=== PATIENT | female | born 1950 | race Caucasian/White ===

== ENCOUNTER 2017-02-17 12:20 | Emergency (ER) | payer MEDICARE, OTHER ==
--- NOTE | 2017-02-17 13:11 | ERPHSYRPT ---
- History of Present Illness Time Seen by Provider: 02/17/17 12:28 Source: patient, family Exam Limitations: no limitations Patient Subjective Stated Complaint: feeling numbness in right side of face and right arm. saw museum preparator this am and had labs done. ddimer elevated so patient was sent to er for eval Triage Nursing Assessment: ambulated to room without difficulty. skin w/d, color normal, resp easy. numbness to right arm and face since yesterday. that continues at present time. denies any other symptoms at this time. Physician History: patient seen in walk in clinic and had an abnormally hi D Dimer; Called by Meme Glover to evaluate; concern that may be TIA/Stroke patient developed numb feeling in right side of lower face yesterday with funny feeling in scalp; no PEREZ; no fever; no trauma; no travel or exposures; also numbness in right forearm and across top of right hand tingling like asleep; no prior hx; left hand dominant; no trouble eating, swallowing or walking; no memory issues; no visual changes; no tiniitus; no change in urine or bowel Timing/Duration: today (persistant but not as noticable), yesterday (onset), gradual onset, improved Severity: mild Modifying Factors: Improves With: nothing Associated Symptoms: denies symptoms Allergies/Adverse Reactions: adhesive Allergy (Verified 01/07/16 21:39) corn Allergy (Verified 02/17/17 12:54) Latex, Natural Rubber Allergy (Verified 01/07/16 21:39) milk Allergy (Verified 01/07/16 21:39) Home Medications: Hydrochlorothiazide 25 mg [hydroDIURIL 25 MG] 25 mg PO DAILY 02/17/17 [ History] Levothyroxine Sodium 88 Mcg [Synthroid 88 Mcg] 88 mcg PO DAILY 02/17/17 [ History] Montelukast Sodium 10 mg [Singulair 10 MG] 10 mg PO DAILY 02/17/17 [History] Valsartan [Diovan] 80 mg PO DAILY 02/17/17 [History] Hx Tetanus, Diphtheria Vaccination/Date Given: No Hx Influenza Vaccination/Date Given: Yes Hx Pneumococcal Vaccination/Date Given: Yes - Review of Systems Constitutional: No Symptoms Eyes: No Symptoms Ears, Nose, & Throat: No Symptoms Respiratory: No Cough, No Dyspnea, No Wheezing Cardiac: No Chest Pain, No Palpitations, No Syncope Abdominal/Gastrointestinal: No Abdominal Pain, No Nausea, No Vomiting, No Diarrhea Genitourinary Symptoms: No Dysuria, No Hematuria, No Incontinence, No Urinary Retention Musculoskeletal: No Back Pain, No Neck Pain, No Fall, No Injury Skin: No Symptoms Neurological: Parasthesia (right face V-2 and V-3 distribution and right forearm and dorsal hand), Sensory Changes, No Focal Weakness, No Gait Changes, No Headache, No Paralysis, No Speech Changes, No Vertigo Psychological: No Symptoms Endocrine: No Symptoms Hematologic/Lymphatic: No Symptoms Immunological/Allergic: No Symptoms - Past Medical History Pertinent Past Medical History: Yes Cardiac History: Hypertension Respiratory History: Asthma - Past Surgical History Past Surgical History: Yes Gastrointestinal: Cholecystectomy Female Surgical History: Hysterectomy Other Surgical History: EXPLORATORY LAP - Social History Smoking Status: Never smoker Exposure to second hand smoke: No Alcohol Use: Socially Drug Use: none Patient Lives Alone: No Significant Family History: no pertinent family hx - Female History Hx Now: No - Nursing Vital Signs Nursing Vital Signs: Initial Vital Signs Temperature 98.3 F 02/17/17 12:49 Pulse Rate 98 H 02/17/17 12:49 Respiratory Rate 16 02/17/17 12:49 Blood Pressure 148/87 02/17/17 12:49 O2 Sat by Pulse Oximetry 95 02/17/17 12:49 Pain Scale Pain Intensity 0 - Physical Exam General Appearance: mild distress, alert Eye Exam: PERRL/EOMI, eyes nml inspection, other (fundi benign; vision ok; no papiledema), No photophobia Ears, Nose, Throat Exam: normal ENT inspection, TMs normal, pharynx normal, moist mucous membranes Neck Exam: normal inspection, non-tender, supple, full range of motion, No meningismus, No JVD Cardiovascular Exam: regular rate/rhythm, normal peripheral pulses, capillary refill <2 sec, No normal heart sounds, No murmur Gastrointestinal/Abdomen Exam: soft, normal bowel sounds, No tenderness, No guarding, No rebound, No organomegaly Pelvic Exam: deferred Rectal Exam: deferred Back Exam: normal inspection, normal range of motion, No CVA tenderness, No vertebral tenderness, No rash Extremity Exam: normal inspection, normal range of motion, No kenneth's sign, No pedal edema Neurologic Exam: alert, oriented x 3, cooperative, bessemer regulator II-XII nml as tested, normal mood/affect, nml cerebellar function, nml station & gait, sensation nml ( to light touch), other (tongue midline; nneg rhomberg; good finger to nose; no cerebellar dysfunction), No motor deficits, No sensory deficit, No slurred speech Skin Exam: normal color, warm, dry, No rash, No petechiae, No cyanosis SpO2 Interpretation: normal SpO2: 95 Oxygen Delivery: Room Air - Course Nursing assessment & vital signs reviewed: Yes - CT Exams Head CT Interpretation: Negative, Tele-radiologist Report, No/Intracranial Hemorrhag Ordered Tests: Active Orders 24 hr Category Date Time Status Re-Check Vital Signs STAT Care 02/17/17 12:56 Active HEAD WITHOUT CONTRAST [CT] Stat Exams 02/17/17 12:57 Completed BMP Stat Lab 02/17/17 13:30 Completed MAGNESIUM Stat Lab 02/17/17 13:30 Completed PROTIME WITH INR Stat Lab 02/17/17 13:30 Completed Medication Summary Discontinued Medications Generic Name Dose Route Start Last Admin Trade Name Mannyq PRN Reason Stop Dose Admin Potassium Bicarbonate 50 meq 02/17/17 13:53 02/17/17 13:57 K-Lyte 25 Meq PO 02/17/17 13:54 50 meq STAT ONE Administration Potassium Bicarbonate Confirm 02/17/17 13:54 K-Lyte 25 Meq Administered 02/17/17 13:55 Dose 50 meq .ROUTE .[place]ard-MED ONE Lab/Rad Data: Laboratory Result Diagrams 02/17/17 13:30 Laboratory Results 02/17/17 02/17/17 02/17/17 Range/Units 13:30 13:30 13:30 INR 1.04 (0.8-3.0) Sodium 142 (136-145) mEq/L Potassium 2.8 L* (3.5-5.1) mEq/L Chloride 105 (98-107) mEq/L Carbon Dioxide 27.0 (21-32) mEq/L Anion Gap 13.5 (5-15) MEQ/L BUN 9 (9-20) mg/dL Creatinine 0.73 (0.55-1.30) mg/dl Estimated GFR > 60 ML/MIN Glucose 157 H (70-110) MG/DL Calcium 9.5 (8.5-10.1) mg/dL Magnesium 1.7 L (1.8-2.4) mg/dL reviewed - Progress Progress: unchanged (after ct; consulted), re-examined (after CT) Progress Note: 02/17/17 13:14 Discussed workup with Meme Glover and will check lytes and Mg++ and get CT; will monitor and recheck 02/17/17 13:[address]; no change in exam ; at bedside; lyts wnl excpet low K+ 2.8; takes a diuretic but quit taking K+ supplement; will give K+ po and recheck ; CT pending 02/17/17 14:07 CT neg on report; INR ok; Mg++ pending; gave K+ will recheck 02/17/17 14:08 Mg++ low also at 1.7; will consult with Dr Garcia for disposition 02/17/17 14:30 patient up tp the BR; no problems; rechecked; - symptoms starting to improve after K+ PO Discussed with DrJasmyn: Jose (consulted) Counseled pt/family regarding: lab results, diagnosis, need for follow-up, rad results - Departure Time of Disposition: 14:35 Departure Disposition: Home Clinical Impression: Hypokalemia due to loss of potassium, Hypomagnesemia, Arm paresthesia, right, Facial paresthesia Condition: Stable Critical Care Time: No Referrals: KELLEN GLOVER, AGRICULTURAL SYSTEMS SPECIALIST [Primary Care Provider] - Instructions: Hypokalemia Additional Instructions: Diet rich in K+ and Mg++; ; take meds as prescribed Follow-up with family doctor as directed. Call for appointment. Return if any problems. If you smoke please stop. Call or follow up with your family doctor for assistance if you need it to stop. Please wear your seatbelt when driving. Have a nice day. Thank you for allowing us to participate in your care today. :o) Dr Jose Han Prescriptions: Calcium Carb/Mag Carb/Folic AC [Magnebind 400 Rx Tablet] 1 each PO DAILY #30 tablet Potassium Chloride 20 Meq [Klor-Con 20 MEQ] 20 meq PO BID #60 tab
[2017-02-17 13:19] VITALS: BP 149/87; PULSE 94
[2017-02-17 13:46] LABS: ANION GAP 13.5 MEQ/L (5-15); BLOOD UREA NITROGEN 9 mg/dL (9-20); CHLORIDE 105 mEq/L (98-107); Glucose 157 MG/DL (70-110); SODIUM 142 mEq/L (136-145)
[2017-02-17 13:47] LABS: Potassium 2.8 mEq/L (3.5-5.1)
[2017-02-17 13:53] VITALS: O2SAT 95
[2017-02-17] MEDS ORDERED: K-LYTE 25 MEQ PO ONE (13:53)
[2017-02-17] MEDS ORDERED: K-LYTE 25 MEQ ONE (13:54)
[2017-02-17 13:58] LABS: INR 1.04 (0.8-3.0); PROTIME 11.6 SECONDS (9.95-12.35)
--- NOTE | 2017-02-17 14:02 | XRAY ---
Exam: CT of the head without IV contrast from 02/17/2017. CTDI: 71.08 Comparison: None. Indication: Right arm and right side facial numbness 24 hours with no history of injury or prior brain surgery. Technique: Non-IV contrast axial images were obtained through the brain without IV contrast. Reconstructed coronal and sagittal images were created and reviewed. Findings: The ventricles appear of normal size. No focal mass effect or midline shift is seen. I see no evidence of hyperdense MCA sign. No acute intracranial bleed or abnormal extra-axial fluid collection is seen. The nolasco matter-white matter interfaces appear unremarkable. Mild artifactual streaking is seen on the lower cuts through the brain. I see no evidence of territorial infarction. The cortical sulci and basilar cisterns appear unremarkable for the patient's age. There is minimal circumferential mucosal thickening within the left maxillary sinus. Scant mucosal thickening is seen within the right maxillary sinus. There is moderate scattered soft tissue density within the ethmoid sinuses suggesting sinus disease/sinusitis. The frontal sinuses and sphenoid sinus are remarkable only for mild mucosal thickening within the sphenoid sinus. No air-fluid levels are seen. The mastoid air cells are clear. Calvarium of the skull appears intact. Impression: 1. I see no evidence of acute intracranial bleed, focal mass effect, or midline shift. 2. No definite low attenuation lesion is seen to suggest a territorial infarct. If symptoms persists, further evaluation with an MRI of the brain may be helpful. 3. There is some mild artifactual streaking on the lower cuts through the brain. 3. Paranasal sinus disease/sinusitis, which is likely chronic.
== END 2017-02-17 14:41 | disposition home or self-care (01) ==
LOC: ED 12:20
DX: E87.6 Hypokalemia (principal); E83.42 Hypomagnesemia; R20.9 Unspecified disturbances of skin sensation
CPT/HCPCS: 36415; 70450; 80048; 83735; 85610; 99283; A9270-GY

== ENCOUNTER 2017-09-28 16:48 | Emergency (ER) | payer MEDICARE, OTHER ==
[2017-09-28 17:04] VITALS: BP 157/91; PULSE 100; O2SAT 97
[2017-09-28] MEDS ORDERED: Adacel Vial IM ONE ×2 (17:53→17:58)
[2017-09-28] MEDS ORDERED: BACIGUENT PACKET TP ONE (17:53)
[2017-09-28] MEDS ORDERED: XYLOCAINE 1% HCL 20 ML MDV IJ ONE (17:53)
[2017-09-28] MEDS ORDERED: BACIGUENT PACKET ONE (17:58)
[2017-09-28] MEDS ORDERED: XYLOCAINE 1% HCL 20 ML MDV ONE (17:58)
--- NOTE | 2017-09-28 17:58 | ERPHSYRPT ---
- History of Present Illness Time Seen by Provider: 09/28/17 17:54 Source: patient (Anna was done with her of) Exam Limitations: no limitations Patient Subjective Stated Complaint: Fall, laceration to left forearm. Triage Nursing Assessment: Pt presents to the ED with complaints of left forearm laceration after falling at home today. Pt states left elbow pain. Pt denies other complaints at this time, no distress noted. Physician History: 67-year-old white female arrives with complaint of a laceration to her left proximal anterior forearm and pain in her left elbow after falling at home. Patient denies any problems moving her left upper extremity she denies any other injury she states she fell against a refrigerator and then down to the floor. This occurred approximately 1-1/2 hours prior to arrival. Patient is not sure when her last tetanus was.. Past medical history includes asthma, high blood pressure. Past surgical history includes cholecystectomy, hysterectomy, exploratory laparotomy. Extremities Pain Location: elbow: left, forearm: left Modifying Factors: Improves With: nothing Associated Symptoms: none Allergies/Adverse Reactions: adhesive Allergy (Verified 01/07/16 21:39) corn Allergy (Verified 02/17/17 12:54) Latex, Natural Rubber Allergy (Verified 01/07/16 21:39) milk Allergy (Verified 01/07/16 21:39) Home Medications: Levothyroxine Sodium 88 Mcg [Synthroid 88 Mcg] 88 mcg PO DAILY 02/17/17 [ History] Montelukast Sodium 10 mg [Singulair 10 MG] 10 mg PO DAILY 02/17/17 [History] Valsartan [Diovan] 80 mg PO DAILY 02/17/17 [History] Hctz/Triamterene 25/37.5 mg [Maxzide 25MG] 1 tab PO DAILY 09/28/17 [History] Hx Tetanus, Diphtheria Vaccination/Date Given: No Hx Influenza Vaccination/Date Given: No Hx Pneumococcal Vaccination/Date Given: Yes Immunizations Up to Date: No - Review of Systems Constitutional: No Fever, No Chills Eyes: No Symptoms Ears, Nose, & Throat: No Symptoms Respiratory: No Cough, No Dyspnea Cardiac: No Chest Pain, No Edema, No Syncope Abdominal/Gastrointestinal: No Abdominal Pain, No Nausea, No Vomiting, No Diarrhea Genitourinary Symptoms: No Dysuria Musculoskeletal: Other (pain left elbow) Skin: Other (3 cm laceration left anterior proximal forearm) Neurological: No Dizziness, No Focal Weakness, No Sensory Changes Psychological: No Symptoms Endocrine: No Symptoms All Other Systems: Reviewed and Negative - Past Medical History Pertinent Past Medical History: Yes Cardiac History: Hypertension Respiratory History: Asthma - Past Surgical History Past Surgical History: Yes Gastrointestinal: Cholecystectomy Female Surgical History: Hysterectomy Other Surgical History: EXPLORATORY LAP - Social History Smoking Status: Never smoker Exposure to second hand smoke: No Alcohol Use: Socially Drug Use: none Patient Lives Alone: No Significant Family History: no pertinent family hx - Female History Hx Now: No - Nursing Vital Signs Nursing Vital Signs: Initial Vital Signs Temperature 99.0 F 09/28/17 17:00 Pulse Rate 100 H 09/28/17 17:00 Respiratory Rate 16 09/28/17 17:00 Blood Pressure 157/91 09/28/17 17:00 O2 Sat by Pulse Oximetry 97 09/28/17 17:00 Pain Scale Pain Intensity 4 - Physical Exam General Appearance: mild distress Eyes, Ears, Nose, Throat Exam: moist mucous membranes Neck Exam: non-tender, supple Cardiovascular/Respiratory Exam: chest non-tender, normal breath sounds, regular rate/rhythm, no respiratory distress Abdominal Exam: non-tender, No guarding Back Exam: normal inspection, No vertebral tenderness Shoulder Exam: normal inspection, non-tender, no evidence of injury, normal ROM Elbow/Forearm Exam: No normal inspection (Patient with 3 cm laceration left anterior proximal forearm, mild ecchymosis left elbow mild tenderneness with palpation left elbow. Full range of motion all extremities) Wrist Exam: normal inspection, non-tender, no evidence of injury, normal ROM Hand Exam: normal inspection, non-tender, no evidence of injury, normal ROM Neuro/Tendon Exam: normal sensation, normal motor functions Mental Status Exam: alert, oriented x 3, cooperative Skin Exam: other (3 cm laceration left anterior proximal forearm) SpO2 Interpretation: normal (97%) SpO2: 97 Oxygen Delivery: Room Air - Course Nursing assessment & vital signs reviewed: Yes - Radiology Exams Left Elbow X-ray Interpretation: Discussed w/ radiologist, No Fracture, No Subluxation, Other (no fracture, no subluxation , medial epicondyle spur) Ordered Tests: Active Orders 24 hr Category Date Time Status Prepare for Sutures STAT Care 09/28/17 17:53 Active Sutures STAT Care 09/28/17 17:54 Active Wound Care STAT Care 09/28/17 17:53 Active ELBOW (2 VIEW) Stat Exams 09/28/17 17:21 Taken Medication Summary Discontinued Medications Generic Name Dose Route Start Last Admin Trade Name Ayala PRN Reason Stop Dose Admin Bacitracin 0.9 gm 09/28/17 17:53 09/28/17 18:03 Baciguent Packet TP 09/28/17 17:54 0.9 gm STAT ONE Administration Bacitracin Confirm 09/28/17 17:58 Baciguent Packet Administered 09/28/17 17:59 Dose 1 gm .ROUTE .STK-MED ONE Diphtheria/Tetanus/Acell Pertussis 0.5 ml 09/28/17 17:53 09/28/17 18:02 Adacel Vial IM 09/28/17 17:54 0.5 ml .ONCE ONE Administration Diphtheria/Tetanus/Acell Pertussis Confirm 09/28/17 17:58 Adacel Vial Administered 09/28/17 17:59 Dose 0.5 ml IM .STK-MED ONE Lidocaine HCl 5 ml 09/28/17 17:53 09/28/17 18:04 Xylocaine 1% Hcl 20 Ml Mdv IJ 09/28/17 17:54 5 ml STAT ONE Administration Lidocaine HCl Confirm 09/28/17 17:58 Xylocaine 1% Hcl 20 Ml Mdv Administered 09/28/17 17:59 Dose 1 ml .ROUTE .STK-MED ONE - Progress Progress: improved Progress Note: 09/28/17 18:36 Laceration repair 3 cm laceration left proximal anterior forearm. Laceration was sterilely prepped and draped, anesthetized with 1% lidocaine sutured with 6 5. 0 Ethilon sutures Bacitracin and dressing is applied. Patient's x-ray left elbow (my read ) no fractures no subluxation. Patient's DTaP was updated. - Departure Time of Disposition: 18:37 Departure Disposition: Home Clinical Impression: 3 cm laceration left forearm Contusion of left elbow Qualifiers: Encounter type: initial encounter Qualified Code(s): S50.02XA - Contusion of left elbow, initial encounter Condition: Fair Critical Care Time: No Referrals: BALWINDER PACHECO [Primary Care Provider] - Instructions: Laceration Repair With Stitches (DC) Additional Instructions: Return home. Cold packs left elbow 24-48 hours. Tylenol every 4 hours as needed for pain. Bacitracin to laceration until healed. Sutures out 7-10 days. Follow-up with your family doctor or return if signs of infection or problems. Return for acute distress or for severe symptoms.
--- NOTE | 2017-09-29 08:36 | XRAY ---
Indication: Pain, contusion, and swelling following fall. Comparison: None 3 views of the left elbow demonstrates tiny medial epicondyle spur. No other bony, articular, or soft tissue abnormalities.
== END 2017-09-28 18:50 | disposition home or self-care (01) ==
LOC: ED 16:48
DX: S51.812A Laceration without foreign body of left forearm, initial encounter (principal); S50.02XA Contusion of left elbow, initial encounter; W18.30XA Fall on same level, unspecified, initial encounter
CPT/HCPCS: 12002; 73070; 90471; 90715; 96372; 99283; 99284; A9270-GY

== ENCOUNTER 2022-12-07 15:10 | Emergency (ER) | payer MEDICARE, OTHER ==
--- NOTE | 2022-12-07 15:15 | ERPHSYRPT ---
- History of Present Illness Time Seen by Provider: 12/07/22 15:15 Source: patient Exam Limitations: no limitations Physician History: This is a 72-year-old white female patient of Dr. Reed was seen by Dr. Reed's nurse practitioner nurse practitioner Sanjiv in the office today. Blood work was obtained. Patient was having shortness of breath and not feeling generally well. Patient was started on Augmentin today and received an intramuscular injection of Kenalog in the office. The laboratory work-up included a D-dimer which was found to be significantly elevated. Therefore, the office contacted the patient and the patient is here for further evaluation and management. Patient did have a right knee arthroscopy on October 31 2022. Patient has a history of hypothyroidism and hypertension. Patient denies chest pain. Patient denies hemoptysis. Patient denies abdominal pain. Patient also had COVID and viral studies done today which were negative. Timing/Duration: today, worse Severity: mild Associated Symptoms: shortness of breath, weakness, No nausea, No vomiting, No cough, No chills, No chest pain Allergies/Adverse Reactions: adhesive Allergy (Verified 12/07/22 15:21) corn Allergy (Verified 12/07/22 15:21) Latex, Natural Rubber Allergy (Verified 12/07/22 15:21) milk Allergy (Verified 12/07/22 15:21) Home Medications: Levothyroxine Sodium 88 Mcg [Synthroid 88 Mcg] 88 mcg PO DAILY 02/17/17 [History] Montelukast Sodium 10 mg [Singulair 10 MG] 10 mg PO DAILY 02/17/17 [History] Valsartan [Diovan] 80 mg PO DAILY 02/17/17 [History] Hctz/Triamterene 25/37.5 mg [Maxzide 25MG] 1 tab PO DAILY 09/28/17 [History] Hx Tetanus, Diphtheria Vaccination/Date Given: No Hx Influenza Vaccination/Date Given: No Hx Pneumococcal Vaccination/Date Given: Yes Travel Risk - International Travel Have you traveled outside of the country in past 3 weeks: No - Coronavirus Screening Are you exhibiting any of the following symptoms?: No Close contact with a COVID-19 positive Pt in past 14-21 Days: No - Review of Systems Constitutional: Malaise, No Fever, No Chills Eyes: No Symptoms Ears, Nose, & Throat: No Symptoms Respiratory: Dyspnea Cardiac: No Symptoms Abdominal/Gastrointestinal: No Symptoms Genitourinary Symptoms: No Symptoms Musculoskeletal: No Symptoms Skin: No Symptoms Neurological: No Symptoms Psychological: No Symptoms Endocrine: No Symptoms Hematologic/Lymphatic: No Symptoms Immunological/Allergic: No Symptoms All Other Systems: Reviewed and Negative - Past Medical History Pertinent Past Medical History: Yes Neurological History: No Pertinent History Cardiac History: Arrhythmia Respiratory History: Asthma Endocrine Medical History: Hypothyroidism Musculoskeletal History: Osteoarthritis Other Medical History: PAST BACK PAIN. POTASSIUM DROP. R KNEE SCOPE DUE TO HER DOG RUNNING INTO THE SIDE OF HER KNEE. SCOPE WAS DONE ON 10/31/22. - Past Surgical History Past Surgical History: Yes Gastrointestinal: Cholecystectomy Female Surgical History: Hysterectomy Other Surgical History: EXPLORATORY LAP - Social History Smoking Status: Never smoker Exposure to second hand smoke: No Alcohol Use: Socially Drug Use: none Patient Lives Alone: No Significant Family History: no pertinent family hx - Nursing Vital Signs Nursing Vital Signs: Initial Vital Signs Pulse Rate 100 H 12/07/22 15:19 Respiratory Rate 14 12/07/22 15:19 Blood Pressure 94/58 12/07/22 15:19 Pain Scale Pain Intensity 0 - Physical Exam General Appearance: no apparent distress, alert Eye Exam: PERRL/EOMI, eyes nml inspection Ears, Nose, Throat Exam: normal ENT inspection, moist mucous membranes Neck Exam: normal inspection, non-tender, supple, full range of motion Respiratory Exam: normal breath sounds, lungs clear, airway intact, No chest tenderness, No respiratory distress Cardiovascular Exam: regular rate/rhythm, normal heart sounds, normal peripheral pulses Gastrointestinal/Abdomen Exam: soft, normal bowel sounds, No tenderness Pelvic Exam: not done Rectal Exam: not done Back Exam: normal inspection, normal range of motion, No CVA tenderness, No vertebral tenderness Extremity Exam: normal inspection, normal range of motion, pelvis stable Neurologic Exam: alert, oriented x 3, cooperative, paper hanger II-XII nml as tested, normal mood/affect, nml cerebellar function, nml station & gait, sensation nml Skin Exam: normal color, warm, dry Lymphatic Exam: No adenopathy SpO2 Interpretation: normal O2 Delivery: Room Air - Course Nursing assessment & vital signs reviewed: Yes EKG Interpreted by Me: RATE (104), Sinus Tach, Left Desdemona Deviation, NORMAL INTERVALS, NORMAL QRS, NORMAL ST-T, Other (Borderline no acute ischemic changes on today's twelve-lead EKG.) Ordered Tests: Active Orders 24 hr Category Date Time Status EKG-ER Only STAT Care 12/07/22 15:38 Active IV Insertion STAT Care 12/07/22 15:38 Active CHEST WITH CONTRAST [CT] Stat Exams 12/07/22 15:39 Completed BLOOD CULTURE Stat Lab 12/07/22 16:00 Ordered NT PRO BNPII Stat Lab 12/07/22 15:51 Completed TROPONIN Q4H Lab 12/07/22 15:51 Completed TROPONIN Q4H Lab 12/07/22 19:45 Ordered TROPONIN Q4H Lab 12/07/22 23:45 Ordered Medication Summary Discontinued Medications Generic Name Dose Route Start Last Admin Trade Name Ayala PRN Reason Stop Dose Admin Sodium Chloride 500 mls @ 500 mls/hr 12/07/22 15:39 12/07/22 16:56 Sodium Chloride 0.9% 500 Ml IV 12/07/22 16:38 Infused .Q1H ONE Infusion Sodium Chloride Confirm 12/07/22 15:52 Sodium Chloride 0.9% 500 Ml Administered 12/07/22 15:53 Dose 500 mls @ ud IV .STK-MED ONE Lab/Rad Data: Laboratory Results 12/07/22 12/07/22 Range/Units 15:51 15:51 Troponin I < 0.012 (0.000-0.034) ng/mL NT-Pro-B Natriuret Pep 843 (<300) pg/mL - Progress Progress: improved, re-examined Progress Note: 12/07/22 17:01 CT scan of the chest with contrast was interpreted by the radiologist and I r eviewed the impression. There are no pulmonary emboli present. There is no evidence of any acute cardiopulmonary abnormalities. This patient's medical issue is 1 of low to moderate complexity. Level complexity and the work-up performed is based on review of the patient's past medical history, review of the patient's medication list, review the patient's drug allergy list, history present illness and physical findings on examination. The patient had several labs performed earlier today and I reviewed that list of outpatient lab results. In addition, I ordered a CT scan of the chest with c ontrast with the above findings. I reviewed the twelve-lead EKG myself and interpreted it. I also reviewed the remainder of the labs performed including troponin level. Counseled pt/family regarding: lab results, diagnosis, need for follow-up, rad results Medical Desision Making - Independent Historian Additional History obtained from: Spouse, Child (Daughter) - Diagnostic Testing Diagnostic test were ordered, analyzed, and reviewed by me: Yes Radiological Interpretation: Reviewed by me, Teleradiologist Report - Risk of complications Low Risk: Low risk of morbidity from additional dx testing or treatment - Departure Departure Disposition: Home Clinical Impression: Shortness of breath, Leukocytosis Condition: Stable Critical Care Time: No Referrals: ANÍBAL REED MD [Primary Care Provider] - Follow up/PCP as directed Additional Instructions: Continue antibiotics and other outpatient therapy as well as your other medications as prescribed. Follow-up with your primary care provider for further evaluation management.
[2022-12-07] MEDS ORDERED: Sodium Chloride 0.9% 500 ML 500 ML IV ONE ×2 (15:39→15:52)
--- NOTE | 2022-12-07 16:46 | XRAY ---
Indication: Flu like symptoms. Short of breath. Elevated d-dimer. Multiple contiguous axial images obtained through the chest using 80 cc Isovue 370 contrast and PE protocol. Comparison: None Adequate opacification of the pulmonary arteries. No pulmonary embolus. Heart is enlarged. Aorta minimally arteriosclerotic without aneurysm/dissection. Tiny mediastinal and right hilar calcified nodes. No pathologic mediastinal/hilar lymphadenopathy. Small hiatal hernia. Lungs demonstrates minimal bilateral dependent atelectasis and minimal left base fibrosis/scarring. No suspicious pulmonary mass/nodule, infiltrate, or effusion. Bony thorax intact with minimal/mild degenerative changes throughout the spine. Limited upper abdomen demonstrates fatty liver, tiny splenic calcified granulomas, and cholecystectomy clips. Impression: 1. Negative pulmonary embolus. No acute cardiopulmonary abnormalities. 2. Chronic findings including cardiomegaly, hiatal hernia, degenerative spondylosis, fatty liver, and old granulomatous disease.
[2022-12-07 17:05] VITALS: BP 122/75; PULSE 86; O2SAT 99
== END 2022-12-07 17:24 | disposition home or self-care (01) ==
LOC: ED 15:10
DX: R06.02 Shortness of breath (principal); D72.829 Elevated white blood cell count, unspecified; R79.1 Abnormal coagulation profile; I10 Essential (primary) hypertension; Z79.899 Other long term (current) drug therapy
CPT/HCPCS: 36000; 36415; 71260; 83880; 84484; 87040; 93005; 96374; 99284

== ENCOUNTER 2022-12-26 16:46 | Inpatient (IN) | payer MEDICARE, OTHER ==
[2022-12-26] MEDS ORDERED: Sodium Chloride 0.9% 1000 ML 1,000 ML IV STA (18:21)
[2022-12-26 18:38] LABS: Absolute Neutrophil Ct (ANC) 13.27 x10^3/uL (1.4-6.9); BASOPHIL % 0.3 % (0.0-0.4); Basophil (Absolute #) 0.05 x10^3/uL (0-0.4); Eosinophil % 0.2 % (0.00-5.0); Eosinophil (Absolute #) 0.04 x10^3/uL (0-0.5); Hematocrit 31.8 % (35-47); Hemoglobin 10.7 g/dL (12.0-16.0); IMMATURE GRAN # 0.58 x10^3u/L (0.00-0.03); IMMATURE GRAN % 3.3 % (0.00-0.4); Lymphocyte (Absolute #) 2.13 x10^3/uL (1.0-4.6); Lymphocytes % 12.2 % (24.0-44.0); Mean Cell Volume 92.2 fL (78-100); Mean Corpuscular Hgb Concent. 33.6 g/dL (32-36); Mean Platelet Volume 9.9 fL (7.5-11.0); Monocyte (Absolute #) 1.41 x10^3/uL (0.0-1.3); Monocytes % 8.1 % (0.0-12.0); Neutrophil % 75.9 % (36.0-66.0); Platelet Count 264 x10^3/uL (150-450); Red Blood Count 3.45 x10^6/uL (4.1-5.4); Red Cell Distribution Width 13.3 % (11.5-14.0); White Blood Count 17.5 x10^3/uL (4.0-10.5)
[2022-12-26 18:46] LABS: ALBUMIN 3.1 g/dL (3.5-5.0); ALKALINE PHOSPHATASE 105 U/L (38-126); ANION GAP 14.3 MEQ/L (5-15); BLOOD UREA NITROGEN 7 mg/dL (7-17); CHLORIDE 87 mmol/L (98-107); Calcium 8.4 mg/dL (8.4-10.2); Carbon Dioxide 20 mmol/L (22-30); Creatinine 1 0.61 mg/dL (0.52-1.04); EST GLOMERULAR FILTRATION RATE > 60.0 ML/MIN; Glucose 156 mg/dL (74-106); Potassium 4.2 mmol/L (3.5-5.1); SGOT/AST 34 U/L (14-36); SGPT/ALT 49 U/L (0-35); Total Protein 6.5 g/dL (6.3-8.2)
[2022-12-26 18:54] LABS: SODIUM 117 mmol/L (137-145)
[2022-12-26 19:48] LABS: Appearance Clear (Clear); Bacteria None Seen /HPF (None Seen); Bilirubin Negative (Negative); Blood Negative (Negative); Epithelial Cells None Seen /HPF (None Seen); Glucose, Urine Negative (Negative); Hyaline Casts NONE SEEN /LPF (0-2); Ketones Negative (Negative); Leukocyte Esterase Small (Negative); Nitrite Negative (Negative); Ph 7.5 (4.6-8.0); Protein,Urine Dip Negative (Negative); RBC 0-2 /HPF (0-5); Specific Gravity <=1.005 (1.005-1.030); Urobilinogen 0.2 mg/dL (0.2)
[2022-12-26] MEDS: Sodium Chloride 0.9% 1000 ML 1,000 ML IV SCH (19:58)
[2022-12-26 20:01] LABS: ADD URINE CULTURE? YES (NO)
[2022-12-26] MEDS ORDERED: Zofran 4 MG/2 ML VIAL IV PRN (20:39)
[2022-12-26] MEDS ORDERED: PHENERGAN 25 MG PO PRN (20:39)
[2022-12-26] MEDS ORDERED: ANASPAZ 0.125 MG SL PRN (20:44)
[2022-12-26] MEDS ORDERED: Ventolin Hfa MDI IH PRN (20:44)
[2022-12-26] MEDS ORDERED: VANCOMYCIN 1 GRAM/200 ML BAG 1 GM/200 ML PIGGYBACK IV SCH (20:45)
[2022-12-26] MEDS: MORPHINE SULFATE 2 MG INJ IV PRN (21:19)
--- NOTE | 2022-12-26 21:32 | PCM.HP ---
History of Present Illness - Chief Complaint Chief Complaint: sepsis Date: 12/26/22 History of Present Illness: is a 72 year old female who presents to the hospital as a direct admission from the office of Dr. Washburn due to concerns about possible sepsis of unclear source. The patient has been noted to have, for the past 3 weeks, epigastric pain (burning quality) with radiation upward to the sternal area. The discomfort is constant and positional (worse when supine and improved with sitting upright). Additionally, the patient has had decreased oral intake and appetite, with a loss of approximately 7 pounds during this timeframe. She has had chills but no fever. She denies dysuria, pyuria, hematuria, diarrhea or cough. She also denies nausea, vomiting, hematemesis, melena or rectal bleeding. The patient gives a remote (10+ years ago) history of a duodenal ulcer, and her constellation of abdominal symptoms are similar to when that occurred; that is that last time she had an EGD performed. - Review of Systems Constitutional: Chills, Fatigue Eyes: No Symptoms Ears, Nose, & Throat: No Symptoms Respiratory: No Symptoms Cardiac: No Symptoms Abdominal/Gastrointestinal: Abdominal Pain Genitourinary Symptoms: No Symptoms Musculoskeletal: No Symptoms Skin: No Symptoms Neurological: No Symptoms Psychological: No Symptoms Endocrine: No Symptoms Hematologic/Lymphatic: No Symptoms Immunological/Allergic: No Symptoms All Other Systems: Reviewed and Negative Medications & Allergies Home Medications: Home Medication List Levothyroxine Sodium 88 Mcg [Synthroid 88 Mcg] 88 mcg PO 0800 02/17/17 [History Confirmed 12/26/22] Montelukast Sodium 10 mg [Singulair 10 MG] 10 mg PO DAILY 02/17/17 [History Confirmed 12/26/22] Albuterol 8 gm Mdi Hfa [Ventolin Hfa MDI] 2 puffs IH Q4HPRN PRN 12/26/22 [History Confirmed 12/26/22] Hyoscyamine Sulfate 0.125 mg [Anaspaz 0.125 mg] 0.125 mg SL BIDPRN PRN 12/26/22 [History Confirmed 12/26/22] Lorazepam 0.5 mg [Ativan 0.5 MG] 0.5 - 1 mg PO HS 12/26/22 [History Confirmed 12/26/22] Meloxicam 7.5 mg PO DAILY 12/26/22 [History Confirmed 12/26/22] Ondansetron ODT 4 MG [Zofran Odt 4 mg] 4 mg PO Q6H PRN PRN 12/26/22 [History Confirmed 12/26/22] Ondansetron ODT 4 MG [Zofran Odt 4 mg] 4 mg SL PRN 12/26/22 [History] PANTOPRAZOLE 40 mg Tablet [Protonix 40MG Tablet] 40 mg PO QAM 12/26/22 [History Confirmed 12/26/22] Potassium Chloride 40 meq PO DAILY 12/26/22 [History Confirmed 12/26/22] Ramipril [Altace] 10 mg PO BID 12/26/22 [History Confirmed 12/26/22] Allergies/Adverse Reactions: Allergies Allergy/AdvReac Type Severity Reaction Status Date / Time adhesive Allergy Verified 12/26/22 18:46 corn Allergy Verified 12/26/22 18:46 Latex, Natural Rubber Allergy Verified 12/26/22 18:46 milk Allergy Verified 12/26/22 18:46 - Past Medical History Past Medical History: Yes Neurological History: No Pertinent History ENT History: No Pertinent History Cardiac History: Arrhythmia, Hypertension Respiratory History: Asthma Endocrine Medical History: Hypothyroidism Musculoskelatal History: Osteoarthritis GI Medical History: GERD History: No Pertinent History Pyscho-Social History: Anxiety Reproductive Disorders: No Pertinent History Comment: PAST BACK PAIN. POTASSIUM DROP. R KNEE SCOPE DUE TO HER DOG RUNNING INTO THE SIDE OF HER KNEE. SCOPE WAS DONE ON 10/31/22. - Female History Are you now?: No - Past Surgical History Past Surgical History: Yes Neuro Surgical History: No Pertinent History Cardiac History: No Pertinent History Respiratory Surgery: No Pertinent History GI Surgical History: Cholecystectomy Genitourinary Surgical Hx: No Pertinent History Female Surgical History: Hysterectomy Other Surgical History: EXPLORATORY LAP - Social History Smoking Status: Never smoker Exposure to second hand smoke: No Alcohol: None Drug Use: none Significant Family History: no pertinent family hx - Physical Exam Vital Signs: Vital Signs - 24 hr Temp Pulse Resp BP Pulse Ox 12/26/22 20:00 97.5 F 139 H 20 102/70 100 12/26/22 18:09 97.5 F 139 H 102/70 100 12/26/22 17:55 97.5 F 139 H 22 102/70 100 General Appearance: no apparent distress, alert Neurologic Exam: alert, oriented x 3, 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 Nontender.) Rectal Exam: deferred Back Exam: normal range of motion Extremity Exam: normal inspection, normal range of motion Skin Exam: normal color Results - Labs Lab/Micro Results: Lab Results-Last 24 Hours 12/26/22 12/26/22 12/26/22 Range/Units 18:21 18:30 18:55 WBC 17.5 H (4.0-10.5) x10^3/uL RBC 3.45 L (4.1-5.4) x10^6/uL Hgb 10.7 L (12.0-16.0) g/dL Hct 31.8 L (35-47) % MCV 92.2 (78-100) fL MCH 31.0 (26-32) pg MCHC 33.6 (32-36) g/dL RDW 13.3 (11.5-14.0) % Plt Count 264 (150-450) x10^3/uL MPV 9.9 (7.5-11.0) fL Gran % 75.9 H (36.0-66.0) % Immature Gran % (Auto) 3.3 H (0.00-0.4) % Nucleat RBC Rel Count 0.0 (0.00-0.1) % Eos # (Auto) 0.04 (0-0.5) x10^3/uL Immature Gran # (Auto) 0.58 H (0.00-0.03) x10^3u/L Absolute Lymphs (auto) 2.13 (1.0-4.6) x10^3/uL Absolute Monos (auto) 1.41 H (0.0-1.3) x10^3/uL Absolute Nucleated RBC 0.00 (0.00-0.01) x10^3u/L Lymphocytes % 12.2 L (24.0-44.0) % Monocytes % 8.1 (0.0-12.0) % Eosinophils % 0.2 (0.00-5.0) % Basophils % 0.3 (0.0-0.4) % Absolute Granulocytes 13.27 H (1.4-6.9) x10^3/uL Basophils # 0.05 (0-0.4) x10^3/uL Sodium 117 L* (137-145) mmol/L Potassium 4.2 (3.5-5.1) mmol/L Chloride 87 L (98-107) mmol/L Carbon Dioxide 20 L (22-30) mmol/L Anion Gap 14.3 (5-15) MEQ/L BUN 7 (7-17) mg/dL Creatinine 0.61 (0.52-1.04) mg/dL Estimated GFR > 60.0 ML/MIN Glucose 156 H (74-106) mg/dL Lactic Acid 2.0 (0.4-2.0) Calcium 8.4 (8.4-10.2) mg/dL Total Bilirubin 1.00 (0.2-1.3) mg/dL AST 34 (14-36) U/L ALT 49 H (0-35) U/L Alkaline Phosphatase 105 (38-126) U/L Serum Total Protein 6.5 (6.3-8.2) g/dL Albumin 3.1 L (3.5-5.0) g/dL Urine Color (Yellow) Urine Appearance (Clear) Urine pH (4.6-8.0) Ur Specific [place] (1.005-1.030) Urine Protein (Negative) Urine Glucose (UA) (Negative) mg/dL Urine Ketones (Negative) Urine Blood (Negative) Urine Nitrite (Negative) Urine Bilirubin (Negative) Urine Urobilinogen (0.2) mg/dL Ur Leukocyte Esterase (Negative) U Hyaline Cast (Auto) (0-2) /LPF Urine Microscopic RBC (0-5) /HPF Urine Microscopic WBC (0-5) /HPF Ur Epithelial Cells (None Seen) /HPF Urine Bacteria (None Seen) /HPF Urine Culture Reflexed (NO) 12/26/22 Range/Units 19:30 WBC (4.0-10.5) x10^3/uL RBC (4.1-5.4) x10^6/uL Hgb (12.0-16.0) g/dL Hct (35-47) % MCV (78-100) fL MCH (26-32) pg MCHC (32-36) g/dL RDW (11.5-14.0) % Plt Count (150-450) x10^3/uL MPV (7.5-11.0) fL Gran % (36.0-66.0) % Immature Gran % (Auto) (0.00-0.4) % Nucleat RBC Rel Count (0.00-0.1) % Eos # (Auto) (0-0.5) x10^3/uL Immature Gran # (Auto) (0.00-0.03) x10^3u/L Absolute Lymphs (auto) (1.0-4.6) x10^3/uL Absolute Monos (auto) (0.0-1.3) x10^3/uL Absolute Nucleated RBC (0.00-0.01) x10^3u/L Lymphocytes % (24.0-44.0) % Monocytes % (0.0-12.0) % Eosinophils % (0.00-5.0) % Basophils % (0.0-0.4) % Absolute Granulocytes (1.4-6.9) x10^3/uL Basophils # (0-0.4) x10^3/uL Sodium (137-145) mmol/L Potassium (3.5-5.1) mmol/L Chloride (98-107) mmol/L Carbon Dioxide (22-30) mmol/L Anion Gap (5-15) MEQ/L BUN (7-17) mg/dL Creatinine (0.52-1.04) mg/dL Estimated GFR ML/MIN Glucose (74-106) mg/dL Lactic Acid (0.4-2.0) Calcium (8.4-10.2) mg/dL Total Bilirubin (0.2-1.3) mg/dL AST (14-36) U/L ALT (0-35) U/L Alkaline Phosphatase (38-126) U/L Serum Total Protein (6.3-8.2) g/dL Albumin (3.5-5.0) g/dL Urine Color Yellow (Yellow) Urine Appearance Clear (Clear) Urine pH 7.5 (4.6-8.0) Ur Specific [place] <=1.005 (1.005-1.030) Urine Protein Negative (Negative) Urine Glucose (UA) Negative (Negative) mg/dL Urine Ketones Negative (Negative) Urine Blood Negative (Negative) Urine Nitrite Negative (Negative) Urine Bilirubin Negative (Negative) Urine Urobilinogen 0.2 (0.2) mg/dL Ur Leukocyte Esterase Small A (Negative) U Hyaline Cast (Auto) NONE SEEN (0-2) /LPF Urine Microscopic RBC 0-2 (0-5) /HPF Urine Microscopic WBC 6-10 A (0-5) /HPF Ur Epithelial Cells None Seen (None Seen) /HPF Urine Bacteria None Seen (None Seen) /HPF Urine Culture Reflexed YES (NO) - Radiology Impressions Radiology Exams & Impressions: Radiology Procedures Category Date Time Status ABDOMEN AND PELVIS W/0 CONTRAS [CT] Routine Exams 12/26/22 18:38 Taken CHEST 1 VIEW (PORTABLE) Routine Exams 12/26/22 18:45 Taken CHEST WITHOUT CONTRAST [CT] Routine Exams 12/26/22 18:37 Taken Assessment/Plan (1) Sepsis secondary to UTI Current Visit: Yes Status: Acute Assessment & Plan: Pyuria noted on UA. Sepsis as a result of UTI is present on admission, with leukocytosis and chills. No history of resistant UTI. Cultures collected. Initiated vancomycin and zosyn, but likely can stop vancomycin tomorrow. No obvious skin source of infection. May need outpatient urology referral due to CT findings concerning for possible neurogenic bladder. Preliminary CT chest/abdomen/pelvis read is negative for acute findings. Code(s): A41.9 - SEPSIS, UNSPECIFIED ORGANISM; N39.0 - URINARY TRACT INFECTION, SITE NOT SPECIFIED (2) Duodenal ulcer disease Current Visit: Yes Status: Acute Assessment & Plan: IV PPI BID. Morphine for breakthrough pain. NPO p MN and can consider surgery consult for diagnostic endoscopy in AM. (3) Hyponatremia Current Visit: Yes Status: Acute Assessment & Plan: Likely hypovolemic hyponatremia. Received IV saline bolus already before repeat sodium result showed a further decrease in the sodium. Will administer slow saline infusion for correction of sodium with repeat BMP q6h initially. Code(s): E87.1 - HYPO-OSMOLALITY AND HYPONATREMIA Telemedicine Encounter - Telemedicine Encounter Telemedicine Encounter: The entirety of this encounter was performed via Telemedicine"
[2022-12-26 21:41] LABS: ANION GAP 14.4 MEQ/L (5-15); BLOOD UREA NITROGEN 5 mg/dL (7-17); CHLORIDE 92 mmol/L (98-107); Carbon Dioxide 18 mmol/L (22-30); Creatinine 1 0.57 mg/dL (0.52-1.04); EST GLOMERULAR FILTRATION RATE > 60.0 ML/MIN; Glucose 123 mg/dL (74-106); Potassium 3.9 mmol/L (3.5-5.1)
[2022-12-26 21:43] LABS: SODIUM 121 mmol/L (137-145)
[2022-12-26] MEDS ORDERED: NON-FORMULARY ITEM (Ramipril [Altace] 10 MG Capsule) PO SCH (22:00)
[2022-12-26] MEDS ORDERED: Ativan 0.5 MG PO SCH (22:00)
[2022-12-26] MEDS: PROTONIX 40 MG IV IV SCH (22:36)
[2022-12-26] MEDS: HEPARIN 5000 UNITS/0.5 ML (HIGH RISK MED) SQ SCH (22:37)
[2022-12-27] MEDS ORDERED: PIPERACILLIN/TAZOBACTAM IV ONE ×2 (00:58→05:01)
[2022-12-27] MEDS ORDERED: Sodium Chloride 0.9% 100 ML ONE (00:59)
[2022-12-27] MEDS: PIPERACILLIN/TAZOBACTAM 3.375 GM in Sodium Chloride 100ML MINI-BAG PLUS 100 ML IV SCH ×4 (01:00→18:13)
[2022-12-27] MEDS: MORPHINE SULFATE 2 MG INJ IV PRN ×5 (01:01→22:09)
[2022-12-27 04:36] LABS: Hematocrit 27.7 % (35-47); Hemoglobin 9.2 g/dL (12.0-16.0); Mean Cell Volume 91.7 fL (78-100); Mean Corpuscular Hemoglobin 30.5 pg (26-32); Mean Corpuscular Hgb Concent. 33.2 g/dL (32-36); Mean Platelet Volume 9.5 fL (7.5-11.0); Platelet Count 218 x10^3/uL (150-450); Red Blood Count 3.02 x10^6/uL (4.1-5.4); Red Cell Distribution Width 13.5 % (11.5-14.0); White Blood Count 11.6 x10^3/uL (4.0-10.5)
[2022-12-27] MEDS ORDERED: Sodium Chloride 100ML MINI-BAG PLUS 100 ML IV ONE (05:03)
[2022-12-27 05:17] LABS: ANION GAP 11.3 MEQ/L (5-15); BLOOD UREA NITROGEN 4 mg/dL (7-17); CHLORIDE 97 mmol/L (98-107); Calcium 7.9 mg/dL (8.4-10.2); Carbon Dioxide 18 mmol/L (22-30); Creatinine 1 0.56 mg/dL (0.52-1.04); EST GLOMERULAR FILTRATION RATE > 60.0 ML/MIN; Glucose 109 mg/dL (74-106); Potassium 3.6 mmol/L (3.5-5.1); SODIUM 123 mmol/L (137-145)
[2022-12-27] MEDS ORDERED: VENTOLIN COMMON CANISTER IH PRN (07:11)
[2022-12-27] MEDS: SYNTHROID 88 MCG PO SCH (08:03)
--- NOTE | 2022-12-27 08:43 | XRAY ---
Indication: Fever. Leukocytosis. Multiple contiguous axial images obtained through the chest without contrast. Comparison: December 07, 2022 Study slightly degraded by respiration artifact. Again minimal left base subsegmental atelectasis/scarring. No new pulmonary mass/nodule, infiltrate, or effusion. Heart not enlarged. Aorta again minimally arteriosclerotic without aneurysm. Stable tiny mediastinal and right hilar calcified nodes. No pathologic mediastinal lymphadenopathy. Stable small hiatal hernia. Bony thorax intact again with osteopenia and mild degenerative changes throughout the spine. CT abdomen/pelvis reported separately. Impression: 1. Respiration artifact. 2. Chronic findings including left base atelectasis/scarring, arteriosclerotic disease, hiatal hernia, chronic bony findings, and old granulomatous disease. 3. Remaining CT chest without contrast exam is negative.
--- NOTE | 2022-12-27 08:45 | XRAY ---
Indication: Epigastric pain. Leukocytosis. Multiple contiguous axial images obtained through the abdomen and pelvis without contrast. Comparison: None CT chest reported separately. Noncontrasted stomach and bowel loops appear nonobstructed with 2.9 cm duodenal diverticulum. Scattered descending and sigmoid diverticulosis without diverticulitis. Incidental fatty liver, tiny hepatic/splenic calcified granulomas, cholecystectomy, appendectomy, and hysterectomy. Urinary bladder is moderately distended concerning for outlet objection versus neurogenic bladder. No free fluid/air. Remaining liver, pancreas, spleen, adrenal glands, kidneys, ureters, and bladder are unremarkable for noncontrast exam. Moderate scattered aortoiliac calcifications without AAA. Osseous structures intact with osteopenia and mild/moderate degenerative changes throughout the spine and both hips. Impression: 1. Distended urinary bladder. Rule out outlet obstruction versus neurogenic bladder. 2. Chronic findings including duodenal diverticulum, colonic diverticulosis, fatty liver, arteriosclerotic disease, and chronic bony findings. 3. Remaining CT abdomen/pelvis without contrast exam is negative.
[2022-12-27 09:56] LABS: ANION GAP 13.1 MEQ/L (5-15); BLOOD UREA NITROGEN 4 mg/dL (7-17); CHLORIDE 100 mmol/L (98-107); Calcium 7.6 mg/dL (8.4-10.2); Creatinine 1 0.54 mg/dL (0.52-1.04); EST GLOMERULAR FILTRATION RATE > 60.0 ML/MIN; Glucose 110 mg/dL (74-106); Potassium 3.7 mmol/L (3.5-5.1); SODIUM 125 mmol/L (137-145)
[2022-12-27 10:01] LABS: Carbon Dioxide 18 mmol/L (22-30)
[2022-12-27] MEDS: Singulair 10 MG PO SCH (10:31)
[2022-12-27] MEDS: Sodium Chloride 0.9% 1000 ML 1,000 ML IV SCH ×2 (10:31→14:57)
[2022-12-27] MEDS: TYLENOL 325 MG PO PRN ×3 (10:31→23:52)
[2022-12-27] MEDS: Acidophilus TABLET PO SCH (10:31)
[2022-12-27] MEDS: VANCOMYCIN 1 GRAM/200 ML BAG 1 GM/200 ML PIGGYBACK IV SCH ×2 (10:31→21:31)
[2022-12-27] MEDS: PROTONIX 40 MG IV IV SCH ×2 (10:31→21:32)
[2022-12-27] MEDS: HEPARIN 5000 UNITS/0.5 ML (HIGH RISK MED) SQ SCH ×2 (10:39→21:31)
[2022-12-27] MEDS ORDERED: Sodium Chloride 0.9% 1000 ML 1,000 ML IV STA ×2 (12:21→15:41)
--- NOTE | 2022-12-27 12:34 | PCM.NOTE ---
Date and Time: 12/27/22 1229 Subjective Assessment: Met with patient bedside, daughter and spouse present. Overnight events noted of soft BP in the 80's/40's. Endorses much improvement of epigastric pain/burning since admission,now at 5/10 on numerical scale. Minor back pain at tailbone which she relates to laying in bed, improves with position changes. States that current symptoms are similar to those she had in the past when she was diagnosed with duodenal ulcer 10+ years ago. Plan is for EGD this evening for which patient is agreeable. Denies dysuria, hematuria, flank pain, chest pain, nausea, vomiting, or diarrhea. <SU RUELAS - Last Filed: 12/27/22 12:29> Date and Time: 12/27/22 1334 <ARIS BARRETO - Last Filed: 12/27/22 13:38> - Review of Systems Constitutional: Fatigue, Weakness, Weight Loss (7 lbs in 2-3 weeks) Eyes: No Symptoms Ears, Nose, & Throat: No Symptoms Respiratory: No Symptoms Cardiac: No Symptoms Abdominal/Gastrointestinal: Abdominal Pain (epigastric with radiation upward toward sternal region, burning in characteristic) Musculoskeletal: Back Pain (sacral/improves with position changes) Neurological: No Symptoms Psychological: No Symptoms All Other Systems: Reviewed and Negative <SU RUELAS - Last Filed: 12/27/22 12:29> Objective Exam General Appearance: no apparent distress Neurologic Exam: alert, oriented x 3, cooperative, normal mood/affect Skin Exam: dry, pale Eye Exam: PERRL Respiratory Exam: normal breath sounds Cardiovascular Exam: tachycardia Gastrointestinal/Abdomen Exam: soft, normal bowel sounds, tenderness (TTP x 4 quads), No distention, No mass, No guarding, No rebound Extremity Exam: normal inspection Back Exam: No CVA tenderness <SU RUELAS - Last Filed: 12/27/22 12:29> OBJECTIVE DATA Vital Signs: Vital Signs - 24 hr Temp Pulse Resp BP Pulse Ox 12/27/22 11:14 97.7 F 93 H 18 81/50 97 12/27/22 10:38 90 16 95 12/27/22 08:09 120/56 12/27/22 04:00 98.9 F 98 H 16 88/51 95 12/26/22 21:30 113 H 18 94 L 12/26/22 20:39 98.6 F 109 H 18 98/55 97 12/26/22 20:00 97.5 F 139 H 20 102/70 100 12/26/22 18:09 97.5 F 139 H 102/70 100 12/26/22 17:55 97.5 F 139 H 22 102/70 100 Pain Assessment - Last Documented Pain Intensity 4 Pain Scale Used 0-10 Pain Scale Intake and Output: Intake & Output 12/25/22 12/26/22 12/27/22 12/28/22 11:59 11:59 11:59 11:59 Intake Total 869 Output Total 1050 Balance -181 Weight 74.4 kg Lab Results: Lab Results-Last 24 Hours 12/26/22 12/26/22 12/26/22 Range/Units 18:21 18:30 18:55 WBC 17.5 H (4.0-10.5) x10^3/uL RBC 3.45 L (4.1-5.4) x10^6/uL Hgb 10.7 L (12.0-16.0) g/dL Hct 31.8 L (35-47) % MCV 92.2 (78-100) fL MCH 31.0 (26-32) pg MCHC 33.6 (32-36) g/dL RDW 13.3 (11.5-14.0) % Plt Count 264 (150-450) x10^3/uL MPV 9.9 (7.5-11.0) fL Gran % 75.9 H (36.0-66.0) % Immature Gran % (Auto) 3.3 H (0.00-0.4) % Nucleat RBC Rel Count 0.0 (0.00-0.1) % Eos # (Auto) 0.04 (0-0.5) x10^3/uL Immature Gran # (Auto) 0.58 H (0.00-0.03) x10^3u/L Absolute Lymphs (auto) 2.13 (1.0-4.6) x10^3/uL Absolute Monos (auto) 1.41 H (0.0-1.3) x10^3/uL Absolute Nucleated RBC 0.00 (0.00-0.01) x10^3u/L Lymphocytes % 12.2 L (24.0-44.0) % Monocytes % 8.1 (0.0-12.0) % Eosinophils % 0.2 (0.00-5.0) % Basophils % 0.3 (0.0-0.4) % Absolute Granulocytes 13.27 H (1.4-6.9) x10^3/uL Basophils # 0.05 (0-0.4) x10^3/uL Sodium 117 L* (137-145) mmol/L Potassium 4.2 (3.5-5.1) mmol/L Chloride 87 L (98-107) mmol/L Carbon Dioxide 20 L (22-30) mmol/L Anion Gap 14.3 (5-15) MEQ/L BUN 7 (7-17) mg/dL Creatinine 0.61 (0.52-1.04) mg/dL Estimated GFR > 60.0 ML/MIN Glucose 156 H (74-106) mg/dL Lactic Acid 2.0 (0.4-2.0) Calcium 8.4 (8.4-10.2) mg/dL Total Bilirubin 1.00 (0.2-1.3) mg/dL AST 34 (14-36) U/L ALT 49 H (0-35) U/L Alkaline Phosphatase 105 (38-126) U/L Serum Total Protein 6.5 (6.3-8.2) g/dL Albumin 3.1 L (3.5-5.0) g/dL Urine Color (Yellow) Urine Appearance (Clear) Urine pH (4.6-8.0) Ur Specific [place] (1.005-1.030) Urine Protein (Negative) Urine Glucose (UA) (Negative) mg/dL Urine Ketones (Negative) Urine Blood (Negative) Urine Nitrite (Negative) Urine Bilirubin (Negative) Urine Urobilinogen (0.2) mg/dL Ur Leukocyte Esterase (Negative) U Hyaline Cast (Auto) (0-2) /LPF Urine Microscopic RBC (0-5) /HPF Urine Microscopic WBC (0-5) /HPF Ur Epithelial Cells (None Seen) /HPF Urine Bacteria (None Seen) /HPF Urine Culture Reflexed (NO) 12/26/22 12/26/22 12/27/22 Range/Units 19:30 21:20 04:18 WBC 11.6 H (4.0-10.5) x10^3/uL RBC 3.02 L (4.1-5.4) x10^6/uL Hgb 9.2 L (12.0-16.0) g/dL Hct 27.7 L (35-47) % MCV 91.7 (78-100) fL MCH 30.5 (26-32) pg MCHC 33.2 (32-36) g/dL RDW 13.5 (11.5-14.0) % Plt Count 218 (150-450) x10^3/uL MPV 9.5 (7.5-11.0) fL Gran % (36.0-66.0) % Immature Gran % (Auto) (0.00-0.4) % Nucleat RBC Rel Count (0.00-0.1) % Eos # (Auto) (0-0.5) x10^3/uL Immature Gran # (Auto) (0.00-0.03) x10^3u/L Absolute Lymphs (auto) (1.0-4.6) x10^3/uL Absolute Monos (auto) (0.0-1.3) x10^3/uL Absolute Nucleated RBC (0.00-0.01) x10^3u/L Lymphocytes % (24.0-44.0) % Monocytes % (0.0-12.0) % Eosinophils % (0.00-5.0) % Basophils % (0.0-0.4) % Absolute Granulocytes (1.4-6.9) x10^3/uL Basophils # (0-0.4) x10^3/uL Sodium 121 L (137-145) mmol/L Potassium 3.9 (3.5-5.1) mmol/L Chloride 92 L (98-107) mmol/L Carbon Dioxide 18 L (22-30) mmol/L Anion Gap 14.4 (5-15) MEQ/L BUN 5 L (7-17) mg/dL Creatinine 0.57 (0.52-1.04) mg/dL Estimated GFR > 60.0 ML/MIN Glucose 123 H (74-106) mg/dL Lactic Acid (0.4-2.0) Calcium 8.0 L (8.4-10.2) mg/dL Total Bilirubin (0.2-1.3) mg/dL AST (14-36) U/L ALT (0-35) U/L Alkaline Phosphatase (38-126) U/L Serum Total Protein (6.3-8.2) g/dL Albumin (3.5-5.0) g/dL Urine Color Yellow (Yellow) Urine Appearance Clear (Clear) Urine pH 7.5 (4.6-8.0) Ur Specific [place] <=1.005 (1.005-1.030) Urine Protein Negative (Negative) Urine Glucose (UA) Negative (Negative) mg/dL Urine Ketones Negative (Negative) Urine Blood Negative (Negative) Urine Nitrite Negative (Negative) Urine Bilirubin Negative (Negative) Urine Urobilinogen 0.2 (0.2) mg/dL Ur Leukocyte Esterase Small A (Negative) U Hyaline Cast (Auto) NONE SEEN (0-2) /LPF Urine Microscopic RBC 0-2 (0-5) /HPF Urine Microscopic WBC 6-10 A (0-5) /HPF Ur Epithelial Cells None Seen (None Seen) /HPF Urine Bacteria None Seen (None Seen) /HPF Urine Culture Reflexed YES (NO) 12/27/22 12/27/22 Range/Units 04:18 09:38 WBC (4.0-10.5) x10^3/uL RBC (4.1-5.4) x10^6/uL Hgb (12.0-16.0) g/dL Hct (35-47) % MCV (78-100) fL MCH (26-32) pg MCHC (32-36) g/dL RDW (11.5-14.0) % Plt Count (150-450) x10^3/uL MPV (7.5-11.0) fL Gran % (36.0-66.0) % Immature Gran % (Auto) (0.00-0.4) % Nucleat RBC Rel Count (0.00-0.1) % Eos # (Auto) (0-0.5) x10^3/uL Immature Gran # (Auto) (0.00-0.03) x10^3u/L Absolute Lymphs (auto) (1.0-4.6) x10^3/uL Absolute Monos (auto) (0.0-1.3) x10^3/uL Absolute Nucleated RBC (0.00-0.01) x10^3u/L Lymphocytes % (24.0-44.0) % Monocytes % (0.0-12.0) % Eosinophils % (0.00-5.0) % Basophils % (0.0-0.4) % Absolute Granulocytes (1.4-6.9) x10^3/uL Basophils # (0-0.4) x10^3/uL Sodium 123 L 125 L (137-145) mmol/L Potassium 3.6 3.7 (3.5-5.1) mmol/L Chloride 97 L 100 (98-107) mmol/L Carbon Dioxide 18 L 18 L (22-30) mmol/L Anion Gap 11.3 13.1 (5-15) MEQ/L BUN 4 L 4 L (7-17) mg/dL Creatinine 0.56 0.54 (0.52-1.04) mg/dL Estimated GFR > 60.0 > 60.0 ML/MIN Glucose 109 H 110 H (74-106) mg/dL Lactic Acid (0.4-2.0) Calcium 7.9 L 7.6 L (8.4-10.2) mg/dL Total Bilirubin (0.2-1.3) mg/dL AST (14-36) U/L ALT (0-35) U/L Alkaline Phosphatase (38-126) U/L Serum Total Protein (6.3-8.2) g/dL Albumin (3.5-5.0) g/dL Urine Color (Yellow) Urine Appearance (Clear) Urine pH (4.6-8.0) Ur Specific [place] (1.005-1.030) Urine Protein (Negative) Urine Glucose (UA) (Negative) mg/dL Urine Ketones (Negative) Urine Blood (Negative) Urine Nitrite (Negative) Urine Bilirubin (Negative) Urine Urobilinogen (0.2) mg/dL Ur Leukocyte Esterase (Negative) U Hyaline Cast (Auto) (0-2) /LPF Urine Microscopic RBC (0-5) /HPF Urine Microscopic WBC (0-5) /HPF Ur Epithelial Cells (None Seen) /HPF Urine Bacteria (None Seen) /HPF Urine Culture Reflexed (NO) Radiology Exams: Radiology Procedures Category Date Time Status ABDOMEN AND PELVIS W/0 CONTRAS [CT] Routine Exams 12/26/22 18:38 Completed CHEST 1 VIEW (PORTABLE) Routine Exams 12/26/22 18:45 Taken CHEST WITHOUT CONTRAST [CT] Routine Exams 12/26/22 18:37 Completed <SU RUELAS - Last Filed: 12/27/22 12:29> Vital Signs: Vital Signs - 24 hr Temp Pulse Resp BP Pulse Ox 12/27/22 11:14 97.7 F 93 H 18 81/50 97 12/27/22 10:38 90 16 95 12/27/22 08:09 120/56 12/27/22 04:00 98.9 F 98 H 16 88/51 95 12/26/22 21:30 113 H 18 94 L 12/26/22 20:39 98.6 F 109 H 18 98/55 97 12/26/22 20:00 97.5 F 139 H 20 102/70 100 12/26/22 18:09 97.5 F 139 H 102/70 100 12/26/22 17:55 97.5 F 139 H 22 102/70 100 Pain Assessment - Last Documented Pain Intensity 6 Pain Scale Used 0-10 Pain Scale Intake and Output: Intake & Output 12/25/22 12/26/22 12/27/22 12/28/22 11:59 11:59 11:59 11:59 Intake Total 869 Output Total 1050 500 Balance -181 -500 Weight 74.4 kg Lab Results: Lab Results-Last 24 Hours 12/26/22 12/26/22 12/26/22 Range/Units 18:21 18:30 18:55 WBC 17.5 H (4.0-10.5) x10^3/uL RBC 3.45 L (4.1-5.4) x10^6/uL Hgb 10.7 L (12.0-16.0) g/dL Hct 31.8 L (35-47) % MCV 92.2 (78-100) fL MCH 31.0 (26-32) pg MCHC 33.6 (32-36) g/dL RDW 13.3 (11.5-14.0) % Plt Count 264 (150-450) x10^3/uL MPV 9.9 (7.5-11.0) fL Gran % 75.9 H (36.0-66.0) % Immature Gran % (Auto) 3.3 H (0.00-0.4) % Nucleat RBC Rel Count 0.0 (0.00-0.1) % Eos # (Auto) 0.04 (0-0.5) x10^3/uL Immature Gran # (Auto) 0.58 H (0.00-0.03) x10^3u/L Absolute Lymphs (auto) 2.13 (1.0-4.6) x10^3/uL Absolute Monos (auto) 1.41 H (0.0-1.3) x10^3/uL Absolute Nucleated RBC 0.00 (0.00-0.01) x10^3u/L Lymphocytes % 12.2 L (24.0-44.0) % Monocytes % 8.1 (0.0-12.0) % Eosinophils % 0.2 (0.00-5.0) % Basophils % 0.3 (0.0-0.4) % Absolute Granulocytes 13.27 H (1.4-6.9) x10^3/uL Basophils # 0.05 (0-0.4) x10^3/uL Sodium 117 L* (137-145) mmol/L Potassium 4.2 (3.5-5.1) mmol/L Chloride 87 L (98-107) mmol/L Carbon Dioxide 20 L (22-30) mmol/L Anion Gap 14.3 (5-15) MEQ/L BUN 7 (7-17) mg/dL Creatinine 0.61 (0.52-1.04) mg/dL Estimated GFR > 60.0 ML/MIN Glucose 156 H (74-106) mg/dL Lactic Acid 2.0 (0.4-2.0) Calcium 8.4 (8.4-10.2) mg/dL Total Bilirubin 1.00 (0.2-1.3) mg/dL AST 34 (14-36) U/L ALT 49 H (0-35) U/L Alkaline Phosphatase 105 (38-126) U/L Serum Total Protein 6.5 (6.3-8.2) g/dL Albumin 3.1 L (3.5-5.0) g/dL Urine Color (Yellow) Urine Appearance (Clear) Urine pH (4.6-8.0) Ur Specific [place] (1.005-1.030) Urine Protein (Negative) Urine Glucose (UA) (Negative) mg/dL Urine Ketones (Negative) Urine Blood (Negative) Urine Nitrite (Negative) Urine Bilirubin (Negative) Urine Urobilinogen (0.2) mg/dL Ur Leukocyte Esterase (Negative) U Hyaline Cast (Auto) (0-2) /LPF Urine Microscopic RBC (0-5) /HPF Urine Microscopic WBC (0-5) /HPF Ur Epithelial Cells (None Seen) /HPF Urine Bacteria (None Seen) /HPF Urine Culture Reflexed (NO) 12/26/22 12/26/22 12/27/22 Range/Units 19:30 21:20 04:18 WBC 11.6 H (4.0-10.5) x10^3/uL RBC 3.02 L (4.1-5.4) x10^6/uL Hgb 9.2 L (12.0-16.0) g/dL Hct 27.7 L (35-47) % MCV 91.7 (78-100) fL MCH 30.5 (26-32) pg MCHC 33.2 (32-36) g/dL RDW 13.5 (11.5-14.0) % Plt Count 218 (150-450) x10^3/uL MPV 9.5 (7.5-11.0) fL Gran % (36.0-66.0) % Immature Gran % (Auto) (0.00-0.4) % Nucleat RBC Rel Count (0.00-0.1) % Eos # (Auto) (0-0.5) x10^3/uL Immature Gran # (Auto) (0.00-0.03) x10^3u/L Absolute Lymphs (auto) (1.0-4.6) x10^3/uL Absolute Monos (auto) (0.0-1.3) x10^3/uL Absolute Nucleated RBC (0.00-0.01) x10^3u/L Lymphocytes % (24.0-44.0) % Monocytes % (0.0-12.0) % Eosinophils % (0.00-5.0) % Basophils % (0.0-0.4) % Absolute Granulocytes (1.4-6.9) x10^3/uL Basophils # (0-0.4) x10^3/uL Sodium 121 L (137-145) mmol/L Potassium 3.9 (3.5-5.1) mmol/L Chloride 92 L (98-107) mmol/L Carbon Dioxide 18 L (22-30) mmol/L Anion Gap 14.4 (5-15) MEQ/L BUN 5 L (7-17) mg/dL Creatinine 0.57 (0.52-1.04) mg/dL Estimated GFR > 60.0 ML/MIN Glucose 123 H (74-106) mg/dL Lactic Acid (0.4-2.0) Calcium 8.0 L (8.4-10.2) mg/dL Total Bilirubin (0.2-1.3) mg/dL AST (14-36) U/L ALT (0-35) U/L Alkaline Phosphatase (38-126) U/L Serum Total Protein (6.3-8.2) g/dL Albumin (3.5-5.0) g/dL Urine Color Yellow (Yellow) Urine Appearance Clear (Clear) Urine pH 7.5 (4.6-8.0) Ur Specific [place] <=1.005 (1.005-1.030) Urine Protein Negative (Negative) Urine Glucose (UA) Negative (Negative) mg/dL Urine Ketones Negative (Negative) Urine Blood Negative (Negative) Urine Nitrite Negative (Negative) Urine Bilirubin Negative (Negative) Urine Urobilinogen 0.2 (0.2) mg/dL Ur Leukocyte Esterase Small A (Negative) U Hyaline Cast (Auto) NONE SEEN (0-2) /LPF Urine Microscopic RBC 0-2 (0-5) /HPF Urine Microscopic WBC 6-10 A (0-5) /HPF Ur Epithelial Cells None Seen (None Seen) /HPF Urine Bacteria None Seen (None Seen) /HPF Urine Culture Reflexed YES (NO) 12/27/22 12/27/22 Range/Units 04:18 09:38 WBC (4.0-10.5) x10^3/uL RBC (4.1-5.4) x10^6/uL Hgb (12.0-16.0) g/dL Hct (35-47) % MCV (78-100) fL MCH (26-32) pg MCHC (32-36) g/dL RDW (11.5-14.0) % Plt Count (150-450) x10^3/uL MPV (7.5-11.0) fL Gran % (36.0-66.0) % Immature Gran % (Auto) (0.00-0.4) % Nucleat RBC Rel Count (0.00-0.1) % Eos # (Auto) (0-0.5) x10^3/uL Immature Gran # (Auto) (0.00-0.03) x10^3u/L Absolute Lymphs (auto) (1.0-4.6) x10^3/uL Absolute Monos (auto) (0.0-1.3) x10^3/uL Absolute Nucleated RBC (0.00-0.01) x10^3u/L Lymphocytes % (24.0-44.0) % Monocytes % (0.0-12.0) % Eosinophils % (0.00-5.0) % Basophils % (0.0-0.4) % Absolute Granulocytes (1.4-6.9) x10^3/uL Basophils # (0-0.4) x10^3/uL Sodium 123 L 125 L (137-145) mmol/L Potassium 3.6 3.7 (3.5-5.1) mmol/L Chloride 97 L 100 (98-107) mmol/L Carbon Dioxide 18 L 18 L (22-30) mmol/L Anion Gap 11.3 13.1 (5-15) MEQ/L BUN 4 L 4 L (7-17) mg/dL Creatinine 0.56 0.54 (0.52-1.04) mg/dL Estimated GFR > 60.0 > 60.0 ML/MIN Glucose 109 H 110 H (74-106) mg/dL Lactic Acid (0.4-2.0) Calcium 7.9 L 7.6 L (8.4-10.2) mg/dL Total Bilirubin (0.2-1.3) mg/dL AST (14-36) U/L ALT (0-35) U/L Alkaline Phosphatase (38-126) U/L Serum Total Protein (6.3-8.2) g/dL Albumin (3.5-5.0) g/dL Urine Color (Yellow) Urine Appearance (Clear) Urine pH (4.6-8.0) Ur Specific [place] (1.005-1.030) Urine Protein (Negative) Urine Glucose (UA) (Negative) mg/dL Urine Ketones (Negative) Urine Blood (Negative) Urine Nitrite (Negative) Urine Bilirubin (Negative) Urine Urobilinogen (0.2) mg/dL Ur Leukocyte Esterase (Negative) U Hyaline Cast (Auto) (0-2) /LPF Urine Microscopic RBC (0-5) /HPF Urine Microscopic WBC (0-5) /HPF Ur Epithelial Cells (None Seen) /HPF Urine Bacteria (None Seen) /HPF Urine Culture Reflexed (NO) Radiology Exams: Radiology Procedures Category Date Time Status ABDOMEN AND PELVIS W/0 CONTRAS [CT] Routine Exams 12/26/22 18:38 Completed CHEST 1 VIEW (PORTABLE) Routine Exams 12/26/22 18:45 Taken CHEST WITHOUT CONTRAST [CT] Routine Exams 12/26/22 18:37 Completed <ARIS BARRETO - Last Filed: 12/27/22 13:38> Assessment/Plan (1) Sepsis secondary to UTI Current Visit: Yes Status: Acute Assessment & Plan: Pyuria noted on UA. Sepsis as a result of UTI is present on admission, with leukocytosis and chills. No history of resistant UTI. Cultures collected. Initiated vancomycin and zosyn, but likely can stop vancomycin tomorrow. No obvious skin source of infection. May need outpatient urology referral due to CT findings concerning for possible neurogenic bladder. Preliminary CT chest/abdomen/pelvis read is negative for acute findings. 12/27/22: -U-cult pending/bcult pending -WBC trending down 11.6<17.5 -Continue vanc/zosyn for now -EGD this evening -CT chest/abd/pelvis reviewed with findings of oulet obstruction vs neurogenic bladder, chronic findings of duodenal diverticulum, colonic diverticulosis, fatty liver, arteriosclerotic disease. CT chest negative for acute etiologies. Code(s): A41.9 - SEPSIS, UNSPECIFIED ORGANISM; N39.0 - URINARY TRACT INFECTION, SITE NOT SPECIFIED (2) Leukocytosis Current Visit: No Status: Acute Assessment & Plan: -Infectious process vs inflammation, U/A suspicious for infection, blood and urine cultures pending WBC trending down 11.6<17.5 Code(s): D72.829 - ELEVATED WHITE BLOOD CELL COUNT, UNSPECIFIED (3) Hyponatremia Current Visit: Yes Status: Acute Assessment & Plan: Likely hyo-osmolar, hypovolemic hyponatremia. Received IV saline bolus already before repeat sodium result showed a further decrease in the sodium. Will administer slow saline infusion for correction of sodium with repeat BMP q6h initially. 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 I agree with the assessment, and treatment plan as described in her original note. Please see below for my summary of findings and any additional assessment and plan, as well as any meaningful corrections or explanations of their note. My portion of visit was conducted entirely via telemedicine. 72-year-old woman, presented with sepsis, hyponatremia. Source possibly from a UTI, although only mild amount of pyuria. However, blood cultures now with Gram stain of gram-positive cocci in chains. Leukocytosis is improving today, down to 12. Also with hyponatremia, likely due to poor oral intake and 7 lb weight loss in the last 2 weeks, causing hypovolemic hyponatremia. She has been getting IV fluids, with an appropriately slow rise in her sodium levels. We will give another bolus of 1 L today because of hypotension. Suspect patient has recurrence of her peptic ulcer disease, and her pain has improved on IV Protonix. Have consulted surgery and plan for EGD later today. Aris Barreto MD, PhD Internal Medicine Hospitalist [facility] <ARIS BARRETO - Last Filed: 12/27/22 13:38>
[2022-12-27 15:42] LABS: ANION GAP 11.3 MEQ/L (5-15); BLOOD UREA NITROGEN 4 mg/dL (7-17); CHLORIDE 103 mmol/L (98-107); Calcium 7.7 mg/dL (8.4-10.2); Carbon Dioxide 20 mmol/L (22-30); Creatinine 1 0.61 mg/dL (0.52-1.04); EST GLOMERULAR FILTRATION RATE > 60.0 ML/MIN; Glucose 94 mg/dL (74-106); SODIUM 131 mmol/L (137-145)
[2022-12-27] MEDS: Ativan 0.5 MG PO PRN (21:32)
[2022-12-27 21:39] LABS: ANION GAP 8.1 MEQ/L (5-15); BLOOD UREA NITROGEN 5 mg/dL (7-17); CHLORIDE 107 mmol/L (98-107); Calcium 7.4 mg/dL (8.4-10.2); Carbon Dioxide 19 mmol/L (22-30); Creatinine 1 0.63 mg/dL (0.52-1.04); EST GLOMERULAR FILTRATION RATE > 60.0 ML/MIN; Glucose 104 mg/dL (74-106); Potassium 3.2 mmol/L (3.5-5.1); SODIUM 131 mmol/L (137-145)
[2022-12-28] MEDS: PIPERACILLIN/TAZOBACTAM 3.375 GM in Sodium Chloride 100ML MINI-BAG PLUS 100 ML IV SCH ×4 (00:04→17:44)
[2022-12-28] MEDS: MORPHINE SULFATE 2 MG INJ IV PRN ×4 (05:44→22:24)
[2022-12-28 06:57] LABS: BASOPHIL % 0.6 % (0.0-0.4); Basophil (Absolute #) 0.04 x10^3/uL (0-0.4); Eosinophil % 2.9 % (0.00-5.0); Eosinophil (Absolute #) 0.21 x10^3/uL (0-0.5); Hematocrit 28.8 % (35-47); Hemoglobin 8.9 g/dL (12.0-16.0); IMMATURE GRAN # 0.33 x10^3u/L (0.00-0.03); IMMATURE GRAN % 4.6 % (0.00-0.4); Lymphocyte (Absolute #) 1.19 x10^3/uL (1.0-4.6); Lymphocytes % 16.7 % (24.0-44.0); Mean Cell Volume 97.6 fL (78-100); Mean Corpuscular Hemoglobin 30.2 pg (26-32); Mean Corpuscular Hgb Concent. 30.9 g/dL (32-36); Monocyte (Absolute #) 0.75 x10^3/uL (0.0-1.3); Monocytes % 10.5 % (0.0-12.0); Neutrophil % 64.7 % (36.0-66.0); Platelet Count 203 x10^3/uL (150-450); Red Blood Count 2.95 x10^6/uL (4.1-5.4); Red Cell Distribution Width 13.4 % (11.5-14.0); White Blood Count 7.1 x10^3/uL (4.0-10.5)
[2022-12-28] MEDS: SYNTHROID 88 MCG PO SCH (07:59)
[2022-12-28] MEDS ORDERED: TROUGH DRUG LEVELS IJ ONE (09:30)
[2022-12-28 09:39] LABS: ALBUMIN 2.3 g/dL (3.5-5.0); ALKALINE PHOSPHATASE 77 U/L (38-126); ANION GAP 9.7 MEQ/L (5-15); BLOOD UREA NITROGEN 4 mg/dL (7-17); CHLORIDE 109 mmol/L (98-107); Calcium 7.8 mg/dL (8.4-10.2); Carbon Dioxide 19 mmol/L (22-30); Creatinine 1 0.57 mg/dL (0.52-1.04); EST GLOMERULAR FILTRATION RATE > 60.0 ML/MIN; Glucose 87 mg/dL (74-106); Potassium 3.2 mmol/L (3.5-5.1); SGOT/AST 18 U/L (14-36); SGPT/ALT 29 U/L (0-35); SODIUM 134 mmol/L (137-145); Total Protein 5.3 g/dL (6.3-8.2)
[2022-12-28] MEDS: PROTONIX 40 MG IV IV SCH ×2 (09:48→22:23)
[2022-12-28] MEDS: Singulair 10 MG PO SCH (09:49)
[2022-12-28] MEDS: HEPARIN 5000 UNITS/0.5 ML (HIGH RISK MED) SQ SCH (09:49)
[2022-12-28] MEDS: Acidophilus TABLET PO SCH (09:49)
[2022-12-28] MEDS: Klor Con PO SCH (09:49)
[2022-12-28] MEDS: TYLENOL 325 MG PO PRN (10:50)
[2022-12-28] MEDS: VANCOMYCIN 1 GRAM/200 ML BAG 1 GM/200 ML PIGGYBACK IV SCH ×2 (10:58→22:22)
--- NOTE | 2022-12-28 11:59 | XRAY ---
Indication: Fever. Leukocytosis. Comparison: January 07, 2016 Portable chest is now clear. Heart and mediastinal structures within normal limits. Bony thorax intact again with osteopenia and minimal degenerative changes. Impression: Nonacute chest.
[2022-12-28] MEDS: Sodium Chloride 0.9% 1000 ML 1,000 ML IV SCH (14:20)
--- NOTE | 2022-12-28 15:02 | PCM.NOTE ---
Date and Time: 12/28/22 145 Subjective Assessment: Met with patient bedside. Endorses overall improvement of symptoms. No longer having burning sensation or abdominal pain. Reports that she was able to consume some of her breakfast this morning. EGD on hold until infection has cleared. - Review of Systems Constitutional: No Symptoms Eyes: No Symptoms Ears, Nose, & Throat: No Symptoms Respiratory: No Symptoms Cardiac: No Symptoms Abdominal/Gastrointestinal: Appetite Changes (Improved, not back to baseline) Genitourinary Symptoms: No Symptoms Musculoskeletal: Back Pain (positional) Skin: No Symptoms Neurological: No Symptoms All Other Systems: Reviewed and Negative Objective Exam General Appearance: no apparent distress Neurologic Exam: alert, oriented x 3, cooperative, normal mood/affect Skin Exam: normal color Eye Exam: PERRL Respiratory Exam: normal breath sounds Cardiovascular Exam: regular rate/rhythm Gastrointestinal/Abdomen Exam: soft, normal bowel sounds OBJECTIVE DATA Vital Signs: Vital Signs - 24 hr Temp Pulse Resp BP Pulse Ox 12/28/22 11:23 98.3 F 86 18 116/56 98 12/28/22 07:07 97.9 F 85 16 101/53 100 12/28/22 06:43 84 18 95 12/28/22 03:55 97.9 F 106 H 19 99/57 95 12/27/22 23:32 98.4 F 84 12 84/48 95 12/27/22 20:00 98.3 F 94 H 18 87/54 96 12/27/22 18:29 95 H 18 96 12/27/22 16:58 91/52 12/27/22 15:13 97.7 F 86 18 95/47 97 Pain Assessment - Last Documented Pain Intensity 3 Pain Scale Used 0-10 Pain Scale Intake and Output: Intake & Output 12/26/22 12/27/22 12/28/22 12/29/22 11:59 11:59 11:59 11:59 Intake Total 869 4636 480 Output Total 1050 1450 Balance -181 3186 480 Weight 74.4 kg Lab Results: Lab Results-Last 24 Hours 12/27/22 12/27/22 12/28/22 Range/Units 15:28 21:15 06:30 WBC (4.0-10.5) x10^3/uL RBC (4.1-5.4) x10^6/uL Hgb (12.0-16.0) g/dL Hct (35-47) % MCV (78-100) fL MCH (26-32) pg MCHC (32-36) g/dL RDW (11.5-14.0) % Plt Count (150-450) x10^3/uL MPV (7.5-11.0) fL Gran % (36.0-66.0) % Immature Gran % (Auto) (0.00-0.4) % Nucleat RBC Rel Count (0.00-0.1) % Eos # (Auto) (0-0.5) x10^3/uL Immature Gran # (Auto) (0.00-0.03) x10^3u/L Absolute Lymphs (auto) (1.0-4.6) x10^3/uL Absolute Monos (auto) (0.0-1.3) x10^3/uL Absolute Nucleated RBC (0.00-0.01) x10^3u/L Lymphocytes % (24.0-44.0) % Monocytes % (0.0-12.0) % Eosinophils % (0.00-5.0) % Basophils % (0.0-0.4) % Absolute Granulocytes (1.4-6.9) x10^3/uL Basophils # (0-0.4) x10^3/uL Sodium 131 L 131 L 134 L (137-145) mmol/L Potassium 4.0 3.2 L 3.2 L (3.5-5.1) mmol/L Chloride 103 107 109 H (98-107) mmol/L Carbon Dioxide 20 L 19 L 19 L (22-30) mmol/L Anion Gap 11.3 8.1 9.7 (5-15) MEQ/L BUN 4 L 5 L 4 L (7-17) mg/dL Creatinine 0.61 0.63 0.57 (0.52-1.04) mg/dL Estimated GFR > 60.0 > 60.0 > 60.0 ML/MIN Glucose 94 104 87 (74-106) mg/dL Lactic Acid (0.4-2.0) Calcium 7.7 L 7.4 L 7.8 L (8.4-10.2) mg/dL Total Bilirubin 0.40 (0.2-1.3) mg/dL AST 18 (14-36) U/L ALT 29 (0-35) U/L Alkaline Phosphatase 77 (38-126) U/L Serum Total Protein 5.3 L (6.3-8.2) g/dL Albumin 2.3 L (3.5-5.0) g/dL Vancomycin Trough (10-20) ug/mL 12/28/22 12/28/22 12/28/22 Range/Units 06:48 06:51 09:37 WBC 7.1 (4.0-10.5) x10^3/uL RBC 2.95 L (4.1-5.4) x10^6/uL Hgb 8.9 L (12.0-16.0) g/dL Hct 28.8 L (35-47) % MCV 97.6 D (78-100) fL MCH 30.2 (26-32) pg MCHC 30.9 L (32-36) g/dL RDW 13.4 (11.5-14.0) % Plt Count 203 (150-450) x10^3/uL MPV 9.0 (7.5-11.0) fL Gran % 64.7 (36.0-66.0) % Immature Gran % (Auto) 4.6 H (0.00-0.4) % Nucleat RBC Rel Count 0.0 (0.00-0.1) % Eos # (Auto) 0.21 (0-0.5) x10^3/uL Immature Gran # (Auto) 0.33 H (0.00-0.03) x10^3u/L Absolute Lymphs (auto) 1.19 (1.0-4.6) x10^3/uL Absolute Monos (auto) 0.75 (0.0-1.3) x10^3/uL Absolute Nucleated RBC 0.00 (0.00-0.01) x10^3u/L Lymphocytes % 16.7 L (24.0-44.0) % Monocytes % 10.5 (0.0-12.0) % Eosinophils % 2.9 (0.00-5.0) % Basophils % 0.6 (0.0-0.4) % Absolute Granulocytes 4.60 (1.4-6.9) x10^3/uL Basophils # 0.04 (0-0.4) x10^3/uL Sodium (137-145) mmol/L Potassium (3.5-5.1) mmol/L Chloride (98-107) mmol/L Carbon Dioxide (22-30) mmol/L Anion Gap (5-15) MEQ/L BUN (7-17) mg/dL Creatinine (0.52-1.04) mg/dL Estimated GFR ML/MIN Glucose (74-106) mg/dL Lactic Acid 0.6 (0.4-2.0) Calcium (8.4-10.2) mg/dL Total Bilirubin (0.2-1.3) mg/dL AST (14-36) U/L ALT (0-35) U/L Alkaline Phosphatase (38-126) U/L Serum Total Protein (6.3-8.2) g/dL Albumin (3.5-5.0) g/dL Vancomycin Trough 9.73 L (10-20) ug/mL Radiology Exams: Radiology Procedures Category Date Time Status ABDOMEN AND PELVIS W/0 CONTRAS [CT] Routine Exams 12/26/22 18:38 Completed CHEST 1 VIEW (PORTABLE) Routine Exams 12/26/22 18:45 Completed CHEST WITHOUT CONTRAST [CT] Routine Exams 12/26/22 18:37 Completed Multi-Disciplinary Progress Notes: Multi-Disciplinary Progress Notes 12/28/22 10:54 Case Management Note by Jeannie Veliz S/W PATIENT- SHE CONTINUES TO DENY ANY NEW NEEDS AT TIME OF DC. SHE PLANS TO DC HOME TO HER PLF AT TIME OF DC Initialized on 12/28/22 10:54 - END OF NOTE Assessment/Plan (1) Sepsis secondary to UTI Current Visit: Yes Status: Acute Assessment & Plan: Pyuria noted on UA. Sepsis as a result of UTI is present on admission, with leukocytosis and chills. No history of resistant UTI. Cultures collected and resulting negative. Initiated vancomycin and zosyn. No obvious skin source of infection. Blood cultures growing gram + cocci in chains. Preliminary CT chest/abdomen/pelvis read is negative for acute findings. 12/27/22: -WBC trending now wnl 7.1< 11.6<17.5 -BCult pending final results/growing gram + cocci in chains -Continue vanc/zosyn for now -EGD on hold for now, will follow up as op when infection clears -CT chest/abd/pelvis reviewed with findings of oulet obstruction vs neurogenic bladder, chronic findings of duodenal diverticulum, colonic diverticulosis, fatty liver, arteriosclerotic disease. CT chest negative for acute etiologies. Code(s): A41.9 - SEPSIS, UNSPECIFIED ORGANISM; N39.0 - URINARY TRACT INFECTION, SITE NOT SPECIFIED (2) Leukocytosis Current Visit: No Status: Resolved Assessment & Plan: -See sepsis, wbc now wnl, will continue to trend Code(s): D72.829 - ELEVATED WHITE BLOOD CELL COUNT, UNSPECIFIED (3) Hyponatremia Current Visit: Yes Status: Acute Assessment & Plan: Likely hyo-osmolar, hypovolemic hyponatremia. Appropriate correction with IVF, sodium levels now improved at 134. Will continue to monitor Code(s): E87.1 - HYPO-OSMOLALITY AND HYPONATREMIA (4) Hypotension Current Visit: Yes Status: Acute Assessment & Plan: -Most likely secondary to hypovolemia, BP now stable with fluid resuscitation Code(s): I95.9 - HYPOTENSION, UNSPECIFIED (5) Duodenal ulcer disease Current Visit: Yes Status: Chronic Assessment & Plan: -Noted, adds complexity, suspect recurrence of her PUD, pain has resolved with use of protonix, EGD to be performed as outpatient once infection has cleared. Will need to continue PPI on discharge, most likely for at least eight weeks. Telemedicine Encounter - Telemedicine Encounter Telemedicine Encounter: The entirety of this encounter was performed via Telemedicine"
[2022-12-28] MEDS: Ativan 0.5 MG PO PRN (22:24)
[2022-12-29] MEDS: PIPERACILLIN/TAZOBACTAM 3.375 GM in Sodium Chloride 100ML MINI-BAG PLUS 100 ML IV SCH ×3 (01:00→11:11)
[2022-12-29] MEDS: HEPARIN 5000 UNITS/0.5 ML (HIGH RISK MED) SQ SCH ×3 (03:05→21:10)
[2022-12-29 04:56] LABS: Absolute Neutrophil Ct (ANC) 5.03 x10^3/uL (1.4-6.9); BASOPHIL % 0.6 % (0.0-0.4); Basophil (Absolute #) 0.05 x10^3/uL (0-0.4); Eosinophil % 3.4 % (0.00-5.0); Eosinophil (Absolute #) 0.28 x10^3/uL (0-0.5); Hematocrit 28.7 % (35-47); Hemoglobin 9.2 g/dL (12.0-16.0); IMMATURE GRAN # 0.36 x10^3u/L (0.00-0.03); IMMATURE GRAN % 4.4 % (0.00-0.4); Mean Corpuscular Hemoglobin 30.5 pg (26-32); Mean Corpuscular Hgb Concent. 32.1 g/dL (32-36); Mean Platelet Volume 9.5 fL (7.5-11.0); Monocyte (Absolute #) 0.63 x10^3/uL (0.0-1.3); Monocytes % 7.6 % (0.0-12.0); Platelet Count 231 x10^3/uL (150-450); Red Blood Count 3.02 x10^6/uL (4.1-5.4); Red Cell Distribution Width 13.3 % (11.5-14.0); White Blood Count 8.3 x10^3/uL (4.0-10.5)
[2022-12-29] MEDS: Sodium Chloride 0.9% 1000 ML 1,000 ML IV SCH ×2 (05:17→21:08)
[2022-12-29 05:26] LABS: ALBUMIN 2.4 g/dL (3.5-5.0); ALKALINE PHOSPHATASE 78 U/L (38-126); ANION GAP 11.8 MEQ/L (5-15); CHLORIDE 108 mmol/L (98-107); Carbon Dioxide 17 mmol/L (22-30); Creatinine 1 0.51 mg/dL (0.52-1.04); EST GLOMERULAR FILTRATION RATE > 60.0 ML/MIN; Glucose 95 mg/dL (74-106); Potassium 3.2 mmol/L (3.5-5.1); SGOT/AST 14 U/L (14-36); SGPT/ALT 24 U/L (0-35); SODIUM 133 mmol/L (137-145); Total Protein 5.3 g/dL (6.3-8.2)
[2022-12-29 05:39] LABS: BLOOD UREA NITROGEN < 2 mg/dL (7-17)
[2022-12-29] MEDS: SYNTHROID 88 MCG PO SCH (07:43)
[2022-12-29] MEDS: VANCOMYCIN 1 GRAM/200 ML BAG 1 GM/200 ML PIGGYBACK IV SCH ×2 (09:15→21:11)
[2022-12-29] MEDS: Acidophilus TABLET PO SCH (09:16)
[2022-12-29] MEDS: Klor Con PO SCH (09:16)
[2022-12-29] MEDS: PROTONIX 40 MG IV IV SCH ×2 (09:16→21:10)
[2022-12-29] MEDS: Singulair 10 MG PO SCH (09:16)
--- NOTE | 2022-12-29 15:04 | PCM.NOTE ---
Date and Time: 12/29/221456 Subjective Assessment: Ms. Ramirez is a 72 year old woman who presented with sepsis 12/26/22, now found to have bacteremia. Lab was initially unable to identify specimen, but prelim is now reporting streptococcus sanguinis. Given her persistent symptoms, and echo was performed and currently pending to rule out endocarditis. Patient will most likely discharge tomorrow on oral antibiotic. Note, suspect patient has recurrence of her peptic ulcer disease, but will defer EGD to outpatient visit for evaluation because of patient's bacteremia. Since initiation of PPI patient reports she is no longer having the burning sensation in her abdomen. She is much improved today, sitting up in chair. - Review of Systems Constitutional: No Symptoms Eyes: No Symptoms Ears, Nose, & Throat: No Symptoms Respiratory: No Symptoms Cardiac: No Symptoms Abdominal/Gastrointestinal: No Symptoms Genitourinary Symptoms: No Symptoms Musculoskeletal: No Symptoms Skin: No Symptoms Psychological: No Symptoms Objective Exam General Appearance: no apparent distress Neurologic Exam: alert, oriented x 3, cooperative, normal mood/affect Skin Exam: normal color, warm, dry Eye Exam: PERRL Respiratory Exam: normal breath sounds Cardiovascular Exam: regular rate/rhythm, normal heart sounds Gastrointestinal/Abdomen Exam: soft, normal bowel sounds OBJECTIVE DATA Vital Signs: Vital Signs - 24 hr Temp Pulse Resp BP Pulse Ox 12/29/22 11:39 98.0 F 88 16 144/62 97 12/29/22 07:35 98.0 F 97 H 16 130/60 96 12/29/22 07:17 86 18 97 12/29/22 04:00 98.8 F 100 H 18 120/85 95 12/28/22 23:39 99.4 F 94 H 19 120/58 96 12/28/22 20:00 98.7 F 96 H 17 110/56 96 12/28/22 18:28 81 16 96 12/28/22 16:00 98.1 F 88 16 99/51 97 Pain Assessment - Last Documented Pain Intensity 0 Pain Scale Used 0-10 Pain Scale Intake and Output: Intake & Output 12/27/22 12/28/22 12/29/22 12/30/22 11:59 11:59 11:59 11:59 Intake Total 869 4636 4105 240 Output Total 1050 1450 Balance -181 3186 4105 240 Weight 74.4 kg Lab Results: Lab Results-Last 24 Hours 12/29/22 12/29/22 Range/Units 04:14 04:14 WBC 8.3 (4.0-10.5) x10^3/uL RBC 3.02 L (4.1-5.4) x10^6/uL Hgb 9.2 L (12.0-16.0) g/dL Hct 28.7 L (35-47) % MCV 95.0 (78-100) fL MCH 30.5 (26-32) pg MCHC 32.1 (32-36) g/dL RDW 13.3 (11.5-14.0) % Plt Count 231 (150-450) x10^3/uL MPV 9.5 (7.5-11.0) fL Gran % 61.0 (36.0-66.0) % Immature Gran % (Auto) 4.4 H (0.00-0.4) % Nucleat RBC Rel Count 0.0 (0.00-0.1) % Eos # (Auto) 0.28 (0-0.5) x10^3/uL Immature Gran # (Auto) 0.36 H (0.00-0.03) x10^3u/L Absolute Lymphs (auto) 1.90 (1.0-4.6) x10^3/uL Absolute Monos (auto) 0.63 (0.0-1.3) x10^3/uL Absolute Nucleated RBC 0.00 (0.00-0.01) x10^3u/L Lymphocytes % 23.0 L (24.0-44.0) % Monocytes % 7.6 (0.0-12.0) % Eosinophils % 3.4 (0.00-5.0) % Basophils % 0.6 (0.0-0.4) % Absolute Granulocytes 5.03 (1.4-6.9) x10^3/uL Basophils # 0.05 (0-0.4) x10^3/uL Sodium 133 L (137-145) mmol/L Potassium 3.2 L (3.5-5.1) mmol/L Chloride 108 H (98-107) mmol/L Carbon Dioxide 17 L (22-30) mmol/L Anion Gap 11.8 (5-15) MEQ/L BUN < 2 L (7-17) mg/dL Creatinine 0.51 L (0.52-1.04) mg/dL Estimated GFR > 60.0 ML/MIN Glucose 95 (74-106) mg/dL Calcium 8.0 L (8.4-10.2) mg/dL Total Bilirubin 0.40 (0.2-1.3) mg/dL AST 14 (14-36) U/L ALT 24 (0-35) U/L Alkaline Phosphatase 78 (38-126) U/L Serum Total Protein 5.3 L (6.3-8.2) g/dL Albumin 2.4 L (3.5-5.0) g/dL Radiology Exams: Radiology Procedures Category Date Time Status ECHO W/2D AND DOPPLER [US] Stat Exams 12/29/22 08:00 Taken Multi-Disciplinary Progress Notes: Multi-Disciplinary Progress Notes 12/29/22 12:19 Case Management Note by Jeannie Veliz ROLLATOR ORDERED PER RECOMMENDATION FROM PT. WE DISCUSSED A ROLLING WALKER VS ROLLATOR- PATIENT REQUEST ROLLATOR. ROLLATOR ORDERED VIA [place] WITH [facility]. ORDERED WITH DELIVERY INSTRUCTIONS FOR HER TO [facility]. MARQUISE GLOVER ALSO REPORTS PATIENT WAS SCHEDULED TO SEE THEM PRIOR TO GETTING ILL FOR OUTPT THERAPY FOR HER KNEE. IF PATIENT WISHES TO CONTINUE WITH THIS AFTER HER STAY THEY WILL NEED A NEW ORDER. S/W PATIENT- SHE WISHES TO CONTINUE OTPT THERAPY AFTER DC. OTPT ORDER ENTERED FOR [employer]MENT [employer]SEMBLER TO SIGN. PATIENT DENIES ANY OTHER NEEDS AT TIME OF DC. SHE PLANS TO DC HOME TO HER PLF AT TIME OF DC. Initialized on 12/29/22 12:19 - END OF NOTE Assessment/Plan (1) Bacteremia Current Visit: Yes Status: Acute Assessment & Plan: Ms. Ramirez is a 72 year old woman who presented with sepsis 12/26/22, now found to have bacteremia. Lab was initially unable to identify specimen, but prelim is now reporting streptococcus sanguinis. Given her persistent symptoms, and echo was performed and currently pending to rule out endocarditis. Patient will most likely discharge tomorrow on oral antibiotic. Note, suspect patient has recurrence of her peptic ulcer disease, but will defer EGD to outpatient visit for evaluation because of patient's bacteremia. -Cultures growing streptococcus sanguinis, will d/c zosyn, continue vanc, plan for possible d/c tomorrow pending final sensitivity. Most likely will be able to d/c on oral antibiotics -WBC now wnl, patient is afebrile Code(s): R78.81 - BACTEREMIA (2) Sepsis secondary to UTI Current Visit: Yes Status: Acute Assessment & Plan: Pyuria noted on UA. Sepsis as a result of UTI is present on admission, with leukocytosis and chills. No history of resistant UTI. Cultures collected and resulting negative. Initiated vancomycin and zosyn. No obvious skin source of infection. Blood cultures growing streptococcus sanguinis. Preliminary CT chest/abdomen/pelvis read is negative for acute findings. No longer meeting sepsis criteria. Plan is possible d/c home tomorrow on oral abx pending final sensitivity -WBC trending now wnl 8.3>7.1< 11.6<17.5 -Continue vanc, d/c zosyn -EGD on hold for now, will follow up as op when infection clears -CT chest/abd/pelvis reviewed with findings of oulet obstruction vs neurogenic bladder, chronic findings of duodenal diverticulum, colonic diverticulosis, fatty liver, arteriosclerotic disease. CT chest negative for acute etiologies. -Echo pending to r/o endocarditis Code(s): A41.9 - SEPSIS, UNSPECIFIED ORGANISM; N39.0 - URINARY TRACT INFECTION, SITE NOT SPECIFIED (3) Leukocytosis Current Visit: No Status: Resolved Assessment & Plan: -Resolved see sepsis/bacteremia Code(s): D72.829 - ELEVATED WHITE BLOOD CELL COUNT, UNSPECIFIED (4) Hyponatremia Current Visit: Yes Status: Acute Assessment & Plan: -Improved with IVF, now near normal at 133 Code(s): E87.1 - HYPO-OSMOLALITY AND HYPONATREMIA (5) Hypotension Current Visit: Yes Status: Acute Assessment & Plan: --Most likely secondary to hypovolemia, BP now stable with fluid resuscitation Code(s): I95.9 - HYPOTENSION, UNSPECIFIED (6) Duodenal ulcer disease Current Visit: Yes Status: Chronic Assessment & Plan: -Noted, adds complexity, suspect recurrence of her PUD, pain has resolved with use of protonix, EGD to be performed as outpatient once infection has cleared. Will need to continue PPI on discharge, most likely for at least eight weeks. VTE: Heparin PPI: protonix Dispo: home with PT possibly tomorrow Telemedicine Encounter - Telemedicine Encounter Telemedicine Encounter: The entirety of this encounter was performed via Telemedicine"
[2022-12-29] MEDS: Ativan 0.5 MG PO PRN (21:11)
[2022-12-30] MEDS: SYNTHROID 88 MCG PO SCH (07:25)
[2022-12-30 07:56] LABS: Hematocrit 27.2 % (35-47); Hemoglobin 8.7 g/dL (12.0-16.0); Mean Cell Volume 96.1 fL (78-100); Mean Corpuscular Hemoglobin 30.7 pg (26-32); Mean Platelet Volume 8.5 fL (7.5-11.0); Platelet Count 205 x10^3/uL (150-450); Red Blood Count 2.83 x10^6/uL (4.1-5.4); Red Cell Distribution Width 13.3 % (11.5-14.0)
[2022-12-30] MEDS: Sodium Chloride 0.9% 1000 ML 1,000 ML IV SCH (07:59)
[2022-12-30 09:31] LABS: ALBUMIN 2.4 g/dL (3.5-5.0); ALKALINE PHOSPHATASE 74 U/L (38-126); ANION GAP 9.8 MEQ/L (5-15); CHLORIDE 108 mmol/L (98-107); Carbon Dioxide 20 mmol/L (22-30); Creatinine 1 0.39 mg/dL (0.52-1.04); EST GLOMERULAR FILTRATION RATE > 60.0 ML/MIN; Glucose 100 mg/dL (74-106); Potassium 3.2 mmol/L (3.5-5.1); SGOT/AST 18 U/L (14-36); SGPT/ALT 22 U/L (0-35); SODIUM 135 mmol/L (137-145); Total Protein 5.1 g/dL (6.3-8.2)
[2022-12-30] MEDS: HEPARIN 5000 UNITS/0.5 ML (HIGH RISK MED) SQ SCH (09:41)
[2022-12-30] MEDS: Acidophilus TABLET PO SCH (09:41)
[2022-12-30] MEDS: Klor Con PO SCH (09:41)
[2022-12-30] MEDS: Singulair 10 MG PO SCH (09:42)
[2022-12-30] MEDS: PROTONIX 40 MG IV IV SCH (09:42)
[2022-12-30 10:07] LABS: BLOOD UREA NITROGEN < 2 mg/dL (7-17)
[2022-12-30] MEDS: VANCOMYCIN 1 GRAM/200 ML BAG 1 GM/200 ML PIGGYBACK IV SCH (10:53)
[2022-12-30 11:44] VITALS: BP 137/60; PULSE 87; RESP 16; TEMP 97.9; O2SAT 97
--- NOTE | 2022-12-30 11:54 | PCM.DS ---
Discharge Summary Date of Admission: 12/27/22 12:29 Date of Discharge: 12/30/22 Admitting Physician: ANÍBAL REED Consults: Consults on Case 12/27/22 08:30 Consult Surgery ROUTINE Primary Care Provider: ANÍBAL REED Allergies Allergies adhesive Allergy (Verified 12/26/22 18:46) corn Allergy (Verified 12/26/22 18:46) Latex, Natural Rubber Allergy (Verified 12/26/22 18:46) milk Allergy (Verified 12/26/22 18:46) Hospital Summary - Hospital Course Hospital Course: Mrs. Ramirez is a 72-year-old female that presented with sepsis 12/26/22. She was found to have Streptococcus sanguinous bacteremia. This is a [place] strep, most common source being oral. Pending final antibiotic sensitivity testing, but typically this is sensitive to penicillins and first-generation cephalosporins. She will discharge home on a 14 day regimen of Vantin 200mg BID. Will follow-up final results of sensitivity testing as well as echocardiogram to rule endocarditis, patient has no history of known valvular disease. Of note, during hospitalization patient had complaints of a burning sensation over the past several weeks which has resulted in a poor appetite with subsequent weight loss of 7 lbs. I suspect that the patient has recurrence of her peptic ulcer disease, but will defer EGD to outpatient visit for evaluation due to the patient's bacteremia. She has responded well to treatment on PPI, and is now able to tolerate a regualr diet. I will continue treatment with Protonix 40mg bid for 8 weeks. Patient has also been provided with a rollator and outpt therapy for her knee. (1) Bacteremia Current Visit: Yes Status: Acute Assessment & Plan: Ms. Ramirez is a 72 year old woman who presented with sepsis 12/26/22, now found to have bacteremia. Lab was initially unable to identify specimen, but prelim is now reporting streptococcus sanguinis. Given her persistent symptoms, and echo was performed and currently pending to rule out endocarditis. Will d/c on Vantin - Code(s): R78.81 - BACTEREMIA (2) Sepsis secondary to UTI Current Visit: Yes Status: Acute Assessment & Plan: Pyuria noted on UA. Sepsis as a result of UTI is present on admission, with leukocytosis and chills. No history of resistant UTI. Cultures collected and resulting negative. Initiated vancomycin and zosyn. No obvious skin source of infection. Blood cultures growing streptococcus sanguinis. Preliminary CT chest/abdomen/pelvis read is negative for acute findings. No longer meeting sepsis criteria. d/c home tomorrow on oral abx, vantin, pending final sensitivity -WBC trending now wnl 8.3>7.1< 11.6<17.5 Continue vanc, d/c zosyn -EGD on hold for now, will follow up as op when infection clears -CT chest/abd/pelvis reviewed with findings of oulet obstruction vs neurogenic bladder, chronic findings of duodenal diverticulum, colonic diverticulosis, fatty liver, arteriosclerotic disease. CT chest negative for acute etiologies. -Echo pending to r/o endocarditis Code(s): A41.9 - SEPSIS, UNSPECIFIED ORGANISM; N39.0 - URINARY TRACT INFECTION, SITE NOT SPECIFIED (3) Leukocytosis Current Visit: No Status: Resolved Assessment & Plan: -Resolved see sepsis/bacteremia Code(s): D72.829 - ELEVATED WHITE BLOOD CELL COUNT, UNSPECIFIED (4) Hyponatremia Current Visit: Yes Status: Acute Assessment & Plan: -Improved with IVF, now near normal at 133 Code(s): E87.1 - HYPO-OSMOLALITY AND HYPONATREMIA (5) Hypotension Current Visit: Yes Status: Acute Assessment & Plan: --Most likely secondary to hypovolemia, BP now stable with fluid resuscitation Code(s): I95.9 - HYPOTENSION, UNSPECIFIED (6) Duodenal ulcer disease Current Visit: Yes Status: Chronic Assessment & Plan: -Noted, adds complexity, suspect recurrence of her PUD, pain has resolved with use of protonix, EGD to be performed as outpatient once infection has cleared. Will need to continue PPI on discharge, most likely for at least eight weeks. I have spent > 45 minutes planning and coordinating safe discharge of this patient. - Vitals & Intake/Output Vital Signs: Vital Signs Temperature 97.8 F 12/30/22 07:11 Pulse Rate 89 12/30/22 07:28 Respiratory Rate 14 12/30/22 07:28 Blood Pressure 126/60 12/30/22 07:11 O2 Sat by Pulse Oximetry 96 12/30/22 07:28 Intake & Output: Intake & Output 12/27/22 12/28/22 12/29/22 12/30/22 11:59 11:59 11:59 11:59 Intake Total 677 6038 8808 9030 Output Total 4933 2600 Balance -181 8879 9645 6198 Weight 74.4 kg 74.4 kg - Lab Result Diagrams: 12/30/22 07:52 12/30/22 07:52 Lab Results-Last 24 Hrs: Lab Results-Last 24 Hours 12/30/22 12/30/22 12/30/22 Range/Units 07:52 07:52 10:18 WBC 6.0 (4.0-10.5) x10^3/uL RBC 2.83 L (4.1-5.4) x10^6/uL Hgb 8.7 L (12.0-16.0) g/dL Hct 27.2 L (35-47) % MCV 96.1 (78-100) fL MCH 30.7 (26-32) pg MCHC 32.0 (32-36) g/dL RDW 13.3 (11.5-14.0) % Plt Count 205 (150-450) x10^3/uL MPV 8.5 (7.5-11.0) fL Sodium 135 L (137-145) mmol/L Potassium 3.2 L (3.5-5.1) mmol/L Chloride 108 H (98-107) mmol/L Carbon Dioxide 20 L (22-30) mmol/L Anion Gap 9.8 (5-15) MEQ/L BUN < 2 L (7-17) mg/dL Creatinine 0.39 L (0.52-1.04) mg/dL Estimated GFR > 60.0 ML/MIN Glucose 100 (74-106) mg/dL Calcium 8.0 L (8.4-10.2) mg/dL Total Bilirubin 0.30 (0.2-1.3) mg/dL AST 18 (14-36) U/L ALT 22 (0-35) U/L Alkaline Phosphatase 74 (38-126) U/L Serum Total Protein 5.1 L (6.3-8.2) g/dL Albumin 2.4 L (3.5-5.0) g/dL Vancomycin Trough 9.64 L (10-20) ug/mL Micro Results-Entire Visit: Microbiology 12/26/22 18:57 Aerobic Culture - Preliminary Blood Aerobic Organism ID Result 1 - Preliminary 12/26/22 18:57 Blood Culture Gram Stain - Final Blood Blood Culture - Preliminary ADDITIONAL TESTING IS REQUIRED TO OBTAIN ID AND SENSITIVITY. SPECIMEN HAS BEEN SENT TO REFERENCE LAB, WITH FINAL RESULT EXPECTED WITHIN 96 HOURS. 12/26/22 18:55 Blood Culture Gram Stain - Final Blood Blood Culture - Preliminary ADDITIONAL TESTING IS REQUIRED TO OBTAIN ID AND SENSITIVITY. SPECIMEN HAS BEEN SENT TO REFERENCE LAB, WITH FINAL RESULT EXPECTED WITHIN 96 HOURS. 12/26/22 18:57 Aerobic Organism ID Result 1 - Final Blood Not Reportable Aerobic Organism ID Result 2 - Final Not Reportable Aerobic Organism ID Result 3 - Final Not Reportable Aerobic Organism ID Result 4 - Final Not Reportable Aerobic Bacterial Sensitivity - Final Not Reportable 12/26/22 Unknown Urine Culture - Final Clean Catch Midstream <10K NORMAL SKIN JOHN PROBABLE SKIN CONTAMINANT - Radiology Exams Ordered Rad Exams-Entire Visit: Radiology Procedures Category Date Time Status ECHO W/2D AND DOPPLER [US] Stat Exams 12/29/22 08:00 Taken - Procedures and Test Procedures and Tests throughout Hospitalization: Therapy Orders & Screens 12/26/22 17:46 EKG STAT Comment: 12/26/22 21:45 Respiratory Therapy Assessment DAILY Comment: Diagnosis: sepsis 12/29/22 08:35 PT Eval & Treat (MD Order) ONCE Reason for Eval:: Weakness and back pain, previous fall Diagnosis: SEPSIS Discharge Exam General Appearance: no apparent distress Neurologic Exam: alert, oriented x 3, cooperative Eye Exam: PERRL Neck Exam: normal inspection Respiratory Exam: normal breath sounds Cardiovascular Exam: regular rate/rhythm Gastrointestinal/Abdomen Exam: soft, normal bowel sounds Extremity Exam: normal inspection Skin Exam: normal color Final Diagnosis/Problem List - Final Discharge Diagnosis/Problem (1) Bacteremia Current Visit: Yes Status: Acute Assessment & Plan: see HPI Code(s): R78.81 - BACTEREMIA (2) Sepsis secondary to UTI Current Visit: Yes Status: Resolved Code(s): A41.9 - SEPSIS, UNSPECIFIED ORGANISM; N39.0 - URINARY TRACT INFECTION, SITE NOT SPECIFIED (3) Leukocytosis Current Visit: No Status: Resolved Code(s): D72.829 - ELEVATED WHITE BLOOD CELL COUNT, UNSPECIFIED (4) Hyponatremia Current Visit: Yes Status: Resolved Code(s): E87.1 - HYPO-OSMOLALITY AND HYPONATREMIA (5) Hypotension Current Visit: Yes Status: Resolved Code(s): I95.9 - HYPOTENSION, UNSPECIFIED (6) Duodenal ulcer disease Current Visit: Yes Status: Chronic Telemedicine Encounter - Telemedicine Encounter Telemedicine Encounter: The entirety of this encounter was performed via Telemedicine" - Discharge Disposition: Home, Self-Care Condition: Stable Prescriptions: New Cefpodoxime Proxetil 200 mg [Vantin 200 mg] 200 mg PO BID 14 Days #28 tablet Continue Levothyroxine Sodium 88 Mcg [Synthroid 88 Mcg] 88 mcg PO 0800 Montelukast Sodium 10 mg [Singulair 10 MG] 10 mg PO DAILY Albuterol 8 gm Mdi Hfa [Ventolin Hfa MDI] 2 puffs IH Q4HPRN PRN PRN Reason: Shortness Of Breath Hyoscyamine Sulfate 0.125 mg [Anaspaz 0.125 mg] 0.125 mg SL BIDPRN PRN PRN Reason: Stomach Upset Ramipril [Altace] 10 mg PO BID Meloxicam 7.5 mg PO DAILY Lorazepam 0.5 mg [Ativan 0.5 MG] 0.5 - 1 mg PO HS Ondansetron ODT 4 MG [Zofran Odt 4 mg] 4 mg PO Q6H PRN PRN PRN Reason: Nausea Potassium Chloride 40 meq PO DAILY Ondansetron ODT 4 MG [Zofran Odt 4 mg] 4 mg SL Q6H PRN PRN Reason: Nausea Changed PANTOPRAZOLE 40 mg Tablet [Protonix 40MG Tablet] 40 mg PO BID 30 Days #60 tablet Outpatient Orders: Physical Therapy Eval & Treat Facility: [facility]. Hosp, Location: PHYSICAL THERAPY Instructions: Sepsis, Adult (DC), Generalized Weakness (DC), Hyponatremia (DC) Additional Instructions: YOU HAVE AN APT WITH PHYSICAL THERAPY ON 12/31 @11 AM. IF NEEDED, YOU CAN CO NTACT THE PHYSICAL THERAPY DEPARTMENT AT [phone] extension [phone] Follow up with: ANÍBAL REED MD [Primary Care Provider] - 01/05/23 2:15 pm MONIQUE CAMP [COURTESY STAFF] -
--- NOTE | 2022-12-30 15:41 | ECHO ---
DATE OF PROCEDURE: 12/29/2022 CLINICAL INFORMATION: Bacteremia. The M-mode 2D, and Doppler echocardiogram including color flow Doppler shows the left ventricle is normal in size. There is no thrombus present. The wall thickness is normal. The contractility of the left ventricle is normal. The ejection fraction is calculated to be 58%. The right ventricle is grossly normal. The left atrium is normal in size. The interatrial septum is intact. The right atrium is normal. The aortic valve has mild sclerosis. It opens well and is trileaflet. There is mild aortic regurgitation. There is mitral valve leaflet thickening and calcification associated with mild to moderate mitral regurgitation. There is an amorphous irregular shaped mass attached to the left atrial side of the mitral valve consistent with vegetation. There is calcification of the annulus of the tricuspid valve. There is mild tricuspid regurgitation. The right ventricular systolic pressure is normal at 34 mm of Mercury. The pulmonic valve is not well visualized. The aortic root is normal. There is no pericardial effusion present. IMPRESSION: 1) MITRAL VALVE VEGETATION ASSOCIATED WITH MILD TO MODERATE MITRAL REGURGITATION. 2) MILD TRICUSPID REGURGITATION. 3) MILD PULMONARY HYPERTENSION. 4) MILD AORTIC REGURGITATION. 5) NORMAL CONTRACTILITY OF THE LEFT VENTRICLE.
== END 2022-12-30 13:43 | disposition home or self-care (01) | DRG 872 ==
LOC: LAB 16:46 → EDSTATUS 17:14 → UNDOADMIN 17:15 → MED SURG 17:15 → EDSTATUS 17:17 → MED SURG 17:18 → OBSVTOIN 12-27 12:29
PROVIDERS: ADMIT Family Medicine; ATTEND Family Medicine
DX: R78.81 Bacteremia (principal); N39.0 Urinary tract infection, site not specified; E87.1 Hypo-osmolality and hyponatremia; D72.829 Elevated white blood cell count, unspecified; I95.9 Hypotension, unspecified; K26.7 Chronic duodenal ulcer without hemorrhage or perforation; Z79.899 Other long term (current) drug therapy; Z20.828 Contact with and (suspected) exposure to other viral communicable diseases
CPT/HCPCS: 36415; 71045; 71250; 74176; 80048; 80053; 80202; 81001; 81015; 82150; 83036; 83605; 83690; 84439; 84443; 85025; 85027; 87040; 87077; 87086; 93005; 93268; 93306; 94760; 97110; 97161; 97530; 99214; G0378; G0379; Q3014; J1644; J2270; A9270-GY; J3370

== ENCOUNTER 2023-01-02 00:40 | Observation (INO) | payer MEDICARE, OTHER ==
[2023-01-02] MEDS ORDERED: Adenocard IV 6 MG/2 ML IV ONE ×2 (00:51→01:22)
[2023-01-02] MEDS ORDERED: Sodium Chloride 0.9% 1000 ML 1,000 ML ONE (00:52)
[2023-01-02] MEDS ORDERED: solu-MEDROL 125 MG, Sterile H2O 10 ml 2 ML IV ONE ×2 (00:57)
[2023-01-02] MEDS ORDERED: Pepcid 20 MG VIAL IV ONE ×2 (00:57→01:04)
[2023-01-02] MEDS ORDERED: Zofran 4 MG/2 ML VIAL IV ONE (00:57)
[2023-01-02] MEDS ORDERED: BENADRYL 50 MG/ML IV ONE (00:57)
[2023-01-02] MEDS ORDERED: BENADRYL 50 MG/ML ONE (01:04)
[2023-01-02] MEDS ORDERED: Sterile H2O 10 ml IJ ONE (01:04)
[2023-01-02] MEDS ORDERED: solu-MEDROL ONE (01:04)
[2023-01-02] MEDS ORDERED: Zofran 4 MG/2 ML VIAL ONE (01:23)
[2023-01-02 01:25] LABS: Absolute Neutrophil Ct (ANC) 12.98 x10^3/uL (1.4-6.9); BASOPHIL % 0.5 % (0.0-0.4); Basophil (Absolute #) 0.09 x10^3/uL (0-0.4); Eosinophil (Absolute #) 0.18 x10^3/uL (0-0.5); Hematocrit 39.8 % (35-47); Hemoglobin 12.4 g/dL (12.0-16.0); IMMATURE GRAN # 0.48 x10^3u/L (0.00-0.03); IMMATURE GRAN % 2.7 % (0.00-0.4); Lymphocyte (Absolute #) 2.84 x10^3/uL (1.0-4.6); Lymphocytes % 16.2 % (24.0-44.0); Mean Cell Volume 99.5 fL (78-100); Mean Corpuscular Hgb Concent. 31.2 g/dL (32-36); Mean Platelet Volume 9.2 fL (7.5-11.0); Monocyte (Absolute #) 0.96 x10^3/uL (0.0-1.3); Monocytes % 5.5 % (0.0-12.0); Neutrophil % 74.1 % (36.0-66.0); Platelet Count 348 x10^3/uL (150-450); Red Cell Distribution Width 14.7 % (11.5-14.0); White Blood Count 17.5 x10^3/uL (4.0-10.5)
[2023-01-02 01:46] LABS: ALBUMIN 2.8 g/dL (3.5-5.0); ALKALINE PHOSPHATASE 88 U/L (38-126); ANION GAP 13.9 MEQ/L (5-15); BLOOD UREA NITROGEN 3 mg/dL (7-17); CHLORIDE 104 mmol/L (98-107); Calcium 8.6 mg/dL (8.4-10.2); Carbon Dioxide 21 mmol/L (22-30); Creatinine 1 0.45 mg/dL (0.52-1.04); EST GLOMERULAR FILTRATION RATE > 60.0 ML/MIN; Glucose 259 mg/dL (74-106); NT PRO BNPII 1390 pg/mL (<300); Potassium 3.2 mmol/L (3.5-5.1); SGOT/AST 16 U/L (14-36); SGPT/ALT 22 U/L (0-35); SODIUM 136 mmol/L (137-145)
--- NOTE | 2023-01-02 01:49 | ERPHSYRPT ---
- History of Present Illness Time Seen by Provider: 01/02/23 00:45 Historian: patient, family, EMS Exam Limitations: no limitations Patient Subjective Stated Complaint: pt states that at approx 2300 last night she started itching all over her back, chest, and bilat upper arms/ hands. states that she developed raised hives to back, chest, arms, and legs. 01/01 she rec'd a second dose of 2gm rocephin IVPB at infusion center to treat a strep infection in her blood. she is concerned that she is having an allergic reaction to that medication. Triage Nursing Assessment: pt brought to room 4 via EMS stretcher and assisted staff in sliding her onto ED cot. pt is alert and oriented times three, resp even and unlabored, able to speak in complete sentences, able to move all extremities. redness noted to skin on chest, back, bilat arms, bilat legs that pt reports is itchy. small raised hives noted sporadically through red areas. heart sounds are present, fast, and irregular. lung sounds are clear bilat anterior in all wilks. no swelling noted to lips, mouth, tongue, or throat. pt denies difficulty swallowing or breathing. bilat radial and pedal pulses palpable. Physician History: 72 years old female who has 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 Patient took 2 Benadryl with no significant relief. She denies any difficulty breathing but does have palpitation and her heart rate was in 150s on EMS arrival. She is not hypoxic. Denies any chest pain or tightness. EKG showed sinus tach/supraventricular tachycardia. Patient blood pressure is on the lower side. She is given Benadryl Pepcid and Solu-Medrol along with fluid bolus. With her heart rate regular in 150s, I have given her adenosine to make sure she does not have atrial flutter. Underlying rhythm showed sinus tach. On reevaluation patient is feeling much better hives are improved. Heart rate is in low 100s. Sinus tach. Blood pressure in 120s systolic. Allergies/Adverse Reactions: adhesive Allergy (Verified 01/02/23 00:43) amoxicillin [From Augmentin] Allergy (Verified 01/02/23 00:43) stomach upset clavulanic acid [From Augmentin] Allergy (Verified 01/02/23 00:43) stomach upset corn Allergy (Verified 01/02/23 00:43) Latex, Natural Rubber Allergy (Verified 01/02/23 00:43) metronidazole [From Flagyl] Allergy (Verified 01/02/23 00:43) stomach upset milk Allergy (Verified 01/02/23 00:43) Home Medications: Levothyroxine Sodium 88 Mcg [Synthroid 88 Mcg] 88 mcg PO 0800 02/17/17 [History] Montelukast Sodium 10 mg [Singulair 10 MG] 10 mg PO DAILY 02/17/17 [History] Albuterol 8 gm Mdi Hfa [Ventolin Hfa MDI] 2 puffs IH Q4HPRN PRN 12/26/22 [History] Hyoscyamine Sulfate 0.125 mg [Anaspaz 0.125 mg] 0.125 mg SL BIDPRN PRN 12/26/22 [History] Lorazepam 0.5 mg [Ativan 0.5 MG] 0.5 mg PO HS 12/26/22 [History] Ondansetron ODT 4 MG [Zofran Odt 4 mg] 4 mg SL Q6H PRN 12/26/22 [History] Potassium Chloride 40 meq PO DAILY 12/26/22 [History] Ramipril [Altace] 10 mg PO BID 12/26/22 [History] Hx Tetanus, Diphtheria Vaccination/Date Given: Yes Hx Influenza Vaccination/Date Given: Yes Hx Pneumococcal Vaccination/Date Given: Yes Immunizations Up to Date: Yes Travel Risk - International Travel Have you traveled outside of the country in past 3 weeks: No - Coronavirus Screening Close contact with a COVID-19 positive Pt in past 14-21 Days: No - Vaccine Status Have you recieved a Covid-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: 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[employer]: [employer] - Vaccination Dates Date of 2cond Vaccination (if applicable): UNKNOWN - Review of Systems Constitutional: Fatigue, Weakness Eyes: No Symptoms Ears, Nose, & Throat: No Symptoms Respiratory: No Symptoms Cardiac: Palpitations Abdominal/Gastrointestinal: No Symptoms Genitourinary Symptoms: No Symptoms Musculoskeletal: No Symptoms Neurological: No Symptoms Hematologic/Lymphatic: No Symptoms - Past Medical History Pertinent Past Medical History: Yes Neurological History: No Pertinent History ENT History: No Pertinent History Cardiac History: Arrhythmia, Hypertension Respiratory History: Asthma Endocrine Medical History: Hypothyroidism Musculoskeletal History: Osteoarthritis GI Medical History: GERD History: No Pertinent History Psycho-Social History: Anxiety Female Reproductive Disorders: No Pertinent History Other Medical History: PAST BACK PAIN. POTASSIUM DROP. R KNEE SCOPE DUE TO HER DOG RUNNING INTO THE SIDE OF HER KNEE. SCOPE WAS DONE ON 10/31/22. - Past Surgical History Past Surgical History: Yes Neuro Surgical History: No Pertinent History Cardiac: No Pertinent History Respiratory: No Pertinent History Gastrointestinal: Cholecystectomy Genitourinary: No Pertinent History Musculoskeletal: Orthopedic Surgery Female Surgical History: Hysterectomy Other Surgical History: EXPLORATORY LAP. right knee scope - Social History Smoking Status: Never smoker Exposure to second hand smoke: No Alcohol Use: Socially Drug Use: none Patient Lives Alone: No Significant Family History: no pertinent family hx - Nursing Vital Signs Nursing Vital Signs: Initial Vital Signs Temperature 96.6 F 01/02/23 00:41 Pulse Rate 155 H 01/02/23 00:41 Respiratory Rate 22 01/02/23 00:41 Blood Pressure 79/65 01/02/23 00:41 O2 Sat by Pulse Oximetry 95 01/02/23 00:41 Pain Scale Pain Intensity 0 - Physical Exam General Appearance: no apparent distress, alert Eye Exam: PERRL/EOMI Ears, Nose, Throat Exam: normal ENT inspection Neck Exam: normal inspection, non-tender, supple, full range of motion Respiratory Exam: normal breath sounds, lungs clear Cardiovascular Exam: normal heart sounds, tachycardia Gastrointestinal/Abdomen Exam: soft, normal bowel sounds, No tenderness Back Exam: normal inspection, normal range of motion Extremity Exam: normal inspection Neurologic Exam: alert, oriented x 3, cooperative Skin Exam: normal color SpO2 Interpretation: normal SpO2: 100 O2 Delivery: Room Air - Course EKG Interpreted by Me: RATE (156), SVT, NORMAL AXIS, prolonged QT interval, Non- specific ST Changes (EKG #2 time 0 119. Rate 109 bpm, sinus tach, normal axis, normal intervals, nonspecific ST changes.) Ordered Tests: Active Orders 24 hr Category Date Time Status Building Custodian STAT Care 01/02/23 01:07 Active EKG-ER Only STAT Care 01/02/23 01:06 Active IV Insertion STAT Care 01/02/23 01:06 Active Oxygen-ED Only Nasal Cannula 2 lpm Care 01/02/23 01:06 Active CHEST 1 VIEW (PORTABLE) Stat Exams 01/02/23 01:06 Taken CBC W DIFF Stat Lab 01/02/23 01:23 Completed CMP Stat Lab 01/02/23 01:23 Completed NT PRO BNPII Stat Lab 01/02/23 01:23 Completed TROPONIN Q4H Lab 01/02/23 01:30 Completed TROPONIN Q4H Lab 01/02/23 05:15 Ordered TROPONIN Q4H Lab 01/02/23 09:15 Ordered Medication Summary Discontinued Medications Generic Name Dose Route Start Last Admin Trade Name Freq PRN Reason Stop Dose Admin Adenosine Confirm 01/02/23 00:51 Adenosine 6 Mg/2 Ml Vial Administered 01/02/23 00:52 Dose 6 mg IV .STK-MED ONE Adenosine 6 mg 01/02/23 01:22 01/02/23 01:16 Adenosine 6 Mg/2 Ml Vial IV 01/02/23 01:23 6 mg STAT ONE Administration Methylprednisolone Sodium 0 mg 01/02/23 00:57 01/02/23 01:08 Succinate 125 mg/ Sterile IV 01/02/23 00:58 125 mg Water 2 ml STAT ONE Administration Diphenhydramine HCl 25 mg 01/02/23 00:57 01/02/23 01:08 Diphenhydramine Hcl 50 Mg/Ml Vial IV 01/02/23 00:58 25 mg STAT ONE Administration Diphenhydramine HCl Confirm 01/02/23 01:04 Diphenhydramine Hcl 50 Mg/Ml Vial Administered 01/02/23 01:05 Dose 50 mg .ROUTE .STK-MED ONE Famotidine 20 mg 01/02/23 00:57 01/02/23 01:08 Famotidine 20 Mg/1 Vial IV 01/02/23 00:58 20 mg STAT ONE Administration Famotidine Confirm 01/02/23 01:04 Famotidine 20 Mg/1 Vial Administered 01/02/23 01:05 Dose 20 mg IV .STK-MED ONE Sodium Chloride Confirm 01/02/23 00:52 Sodium Chloride 0.9% 1000 Ml Administered 01/02/23 00:53 Dose 1,000 mls @ ud .ROUTE .STK-MED ONE Methylprednisolone Sodium Succinate Confirm 01/02/23 01:04 Methylprednis Sod Succ 125 Mg/2 Ml Vial Administered 01/02/23 01:05 Dose 125 mg .ROUTE .STK-MED ONE Ondansetron HCl 4 mg 01/02/23 00:57 01/02/23 01:24 Ondansetron Hcl 4 Mg/2 Ml Vial IV 01/02/23 00:58 4 mg STAT ONE Administration Ondansetron HCl Confirm 01/02/23 01:23 Ondansetron Hcl 4 Mg/2 Ml Vial Administered 01/02/23 01:24 Dose 4 mg .ROUTE .Labmeeting-Stratasan ONE Sterile Water Confirm 01/02/23 01:04 Water For Injection,Sterile 10 Ml Vial Administered 01/02/23 01:05 Dose 10 ml IJ .Labmeeting-Stratasan ONE Lab/Rad Data: Laboratory Result Diagrams 01/02/23 01:23 01/02/23 01:23 Laboratory Results 01/02/23 01/02/23 01/02/23 Range/Units 01:30 01:23 01:23 WBC 17.5 H (4.0-10.5) x10^3/uL RBC 4.00 L (4.1-5.4) x10^6/uL Hgb 12.4 (12.0-16.0) g/dL Hct 39.8 (35-47) % MCV 99.5 (78-100) fL MCH 31.0 (26-32) pg MCHC 31.2 L (32-36) g/dL RDW 14.7 H (11.5-14.0) % Plt Count 348 (150-450) x10^3/uL MPV 9.2 (7.5-11.0) fL Gran % 74.1 H (36.0-66.0) % Immature Gran % (Auto) 2.7 H (0.00-0.4) % Nucleat RBC Rel Count 0.0 (0.00-0.1) % Eos # (Auto) 0.18 (0-0.5) x10^3/uL Immature Gran # (Auto) 0.48 H (0.00-0.03) x10^3u/L Absolute Lymphs (auto) 2.84 (1.0-4.6) x10^3/uL Absolute Monos (auto) 0.96 (0.0-1.3) x10^3/uL Absolute Nucleated RBC 0.00 (0.00-0.01) x10^3u/L Lymphocytes % 16.2 L (24.0-44.0) % Monocytes % 5.5 (0.0-12.0) % Eosinophils % 1.0 (0.00-5.0) % Basophils % 0.5 (0.0-0.4) % Absolute Granulocytes 12.98 H (1.4-6.9) x10^3/uL Basophils # 0.09 (0-0.4) x10^3/uL Sodium 136 L (137-145) mmol/L Potassium 3.2 L (3.5-5.1) mmol/L Chloride 104 (98-107) mmol/L Carbon Dioxide 21 L (22-30) mmol/L Anion Gap 13.9 (5-15) MEQ/L BUN 3 L (7-17) mg/dL Creatinine 0.45 L (0.52-1.04) mg/dL Estimated GFR > 60.0 ML/MIN Glucose 259 H (74-106) mg/dL Calcium 8.6 (8.4-10.2) mg/dL Total Bilirubin 0.40 (0.2-1.3) mg/dL AST 16 (14-36) U/L ALT 22 (0-35) U/L Alkaline Phosphatase 88 (38-126) U/L Troponin I 0.057 H* (0.000-0.034) ng/mL NT-Pro-B Natriuret Pep 1390 (<300) pg/mL Serum Total Protein 6.0 L (6.3-8.2) g/dL Albumin 2.8 L (3.5-5.0) g/dL - Progress Progress: improved Progress Note: 01/02/23 02:08 72 years old female who has 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 Patient took 2 Benadryl with no significant relief. She denies any difficulty breathing but does have palpitation and her heart rate was in 150s on EMS arrival. She is not hypoxic. Denies any chest pain or tightness. EKG showed sinus tach/supraventricular tachycardia. Patient blood pressure is on the lower side. She is given Benadryl Pepcid and Solu-Medrol along with fluid bolus. With her heart rate regular in 150s, I have given her adenosine to make sure she does not have atrial flutter. Underlying rhythm showed sinus tach. On reevaluation patient is feeling much better hives are improved. Heart rate is in low 100s. Sinus tach. Blood pressure in 120s systolic. 01/02/23 02:37 Patient work-up showed white count of 17 which probably is reactive. Chest x- ray negative for any acute cardiopulmonary findings reviewed by me, official report is pending. Fairly unremarkable chemistries. Does have mildly elevated troponin of 0.05 which I believe is secondary to run of SVT. Patient does not have any chest pain. Patient thinks she is allergic to Rocephin. She has endocarditis, needs continuous antibiotics. I have discussed with Dr. Gusman, reviewed history and patient concern, patient is being admitted for observation. 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 Gusman 2:35 AM) Reviewed:: Test results Agreed on:: Treatment plan, place in obs Will see patient: in hospital - Diagnostic Testing Diagnostic test were ordered, analyzed, and reviewed by me: Yes Radiological Interpretation: Interpreted by me, Reviewed by me - Risk of complications The pt has a high risk of morbidity or mortality based on: Decision regarding hospitilization or escalation of hosp level of care - Departure Departure Disposition: Observation Clinical Impression: Allergic reaction, SVT (supraventricular tachycardia), Endocarditis Condition: Stable Critical Care Time: Yes Critical Care Time(excluding separately billable procedures): Critical 30-74 mins Referrals: ANÍBAL REED MD [Primary Care Provider] - Follow up/PCP as directed
[2023-01-02] MEDS ORDERED: BENADRYL 50 MG/ML IV PRN (03:24)
[2023-01-02] MEDS ORDERED: TYLENOL 325 MG PO PRN (03:24)
[2023-01-02] MEDS ORDERED: Zofran 4 MG/2 ML VIAL IV PRN (03:24)
[2023-01-02] MEDS ORDERED: Klor Con PO ONE (04:45)
[2023-01-02] MEDS ORDERED: BENADRYL 25 MG CAPSULE PO PRN (04:45)
[2023-01-02] MEDS ORDERED: MILK OF MAGNESIA 30 ML PO PRN (04:46)
[2023-01-02] MEDS ORDERED: DUONEB 0.5-3 MG/3 ml Neb IH PRN (04:46)
[2023-01-02] MEDS ORDERED: Docusate Sodium 100 MG PO PRN (04:46)
--- NOTE | 2023-01-02 04:55 | PCM.HP ---
History of Present Illness - Chief Complaint Chief Complaint: Allergic reaction, SVT, endocarditis Date: 01/02/23 History of Present Illness: This is a 72-year-old female admitted after allergic reaction to home IV antibiotics. 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 Today she presented to the ED with hives over her back chest arms and legs her initial EKG showed sinus tachycardia in the 150s she was given Benadryl, Pepcid, Solu- Medrol, fluid bolus. She was given a dose of adenosine that did reveal underlying rhythm to be sinus tachycardia. Labs this evening significant for WBC 17, hemoglobin 12.4, platelets 348, sodium 136, potassium 3.2, creatinine 1.45, glucose 259, troponin 0.057, BNP 1390. Chest x-ray is negative for any acute pathology. In the ED she received Benadryl, Pepcid, Solu-Medrol, Zofran, NS 1 L. - Review of Systems Skin: Rash All Other Systems: Reviewed and Negative Medications & Allergies Home Medications: Home Medication List Levothyroxine Sodium 88 Mcg [Synthroid 88 Mcg] 88 mcg PO 0800 02/17/17 [History Confirmed 01/02/23] Montelukast Sodium 10 mg [Singulair 10 MG] 10 mg PO DAILY 02/17/17 [History Confirmed 01/02/23] Albuterol 8 gm Mdi Hfa [Ventolin Hfa MDI] 2 puffs IH Q4HPRN PRN 12/26/22 [History Confirmed 01/02/23] Hyoscyamine Sulfate 0.125 mg [Anaspaz 0.125 mg] 0.125 mg SL BIDPRN PRN 12/26/22 [History Confirmed 01/02/23] Lorazepam 0.5 mg [Ativan 0.5 MG] 0.5 mg PO HS 12/26/22 [History Confirmed 01/02/23] Ondansetron ODT 4 MG [Zofran Odt 4 mg] 4 mg SL Q6H PRN 12/26/22 [History Confirmed 01/02/23] Potassium Chloride 40 meq PO DAILY 12/26/22 [History Confirmed 01/02/23] Ramipril [Altace] 10 mg PO BID 12/26/22 [History Confirmed 01/02/23] PANTOPRAZOLE 40 mg Tablet [Protonix 40MG Tablet] 40 mg PO BID 30 Days #60 tablet 12/30/22 [Rx Confirmed 01/02/23] Allergies/Adverse Reactions: Allergies Allergy/AdvReac Type Severity Reaction Status Date / Time adhesive Allergy Verified 01/02/23 00:43 amoxicillin [From Augmentin] Allergy stomach Verified 01/02/23 00:43 upset clavulanic acid Allergy stomach Verified 01/02/23 00:43 [From Augmentin] upset corn Allergy Verified 01/02/23 00:43 Latex, Natural Rubber Allergy Verified 01/02/23 00:43 metronidazole [From Flagyl] Allergy stomach Verified 01/02/23 00:43 upset milk Allergy Verified 01/02/23 00:43 - Past Medical History Past Medical History: Yes Neurological History: No Pertinent History ENT History: No Pertinent History Cardiac History: Arrhythmia, Hypertension, Other Respiratory History: Asthma Endocrine Medical History: Hypothyroidism Musculoskelatal History: Osteoarthritis GI Medical History: GERD History: No Pertinent History Pyscho-Social History: Anxiety Reproductive Disorders: No Pertinent History Comment: PAST BACK PAIN. POTASSIUM DROP. R KNEE SCOPE DUE TO HER DOG RUNNING I NTO THE SIDE OF HER KNEE. SCOPE WAS DONE ON 10/31/22. Vegetation on mitral valve. - Female History Are you now?: No - Past Surgical History Past Surgical History: Yes Neuro Surgical History: No Pertinent History Cardiac History: No Pertinent History Respiratory Surgery: No Pertinent History GI Surgical History: Cholecystectomy Genitourinary Surgical Hx: No Pertinent History Musculskeletal Surgical Hx: Orthopedic Surgery Female Surgical History: Hysterectomy Other Surgical History: EXPLORATORY LAP. right knee scope - Social History Smoking Status: Never smoker Exposure to second hand smoke: No Alcohol: None Drug Use: none Significant Family History: no pertinent family hx - Physical Exam Vital Signs: Vital Signs - 24 hr Temp Pulse Resp BP BP Pulse Ox 01/02/23 03:24 98.4 F 105 H 20 105/53 95 08/14/23 02:43 100 01/02/23 02:30 99 H 16 119/60 98 01/02/23 02:00 100 H 23 116/62 99 01/02/23 01:53 104 H 20 100 01/02/23 01:36 106 H 22 126/73 100 01/02/23 01:20 109 H 18 112/66 112/66 100 01/02/23 01:14 146 H 22 116/72 99 01/02/23 01:05 155 H 20 83/57 99 01/02/23 01:00 159 H 16 89/75 99 01/02/23 00:55 163 H 21 88/66 95 01/02/23 00:51 157 H 24 95/69 96 01/02/23 00:49 95 01/02/23 00:45 159 H 18 99 01/02/23 00:44 156 H 20 79/65 98 01/02/23 00:41 96.6 F 155 H 22 79/65 95 General Appearance: no apparent distress Neurologic Exam: alert, oriented x 3 Eye Exam: PERRL/EOMI Ears, Nose, Throat Exam: normal ENT inspection Neck Exam: normal inspection Respiratory Exam: normal breath sounds Cardiovascular Exam: regular rate/rhythm, normal heart sounds Gastrointestinal/Abdomen Exam: soft, normal bowel sounds Extremity Exam: normal inspection Skin Exam: normal color Results - Labs Lab/Micro Results: Lab Results-Last 24 Hours 01/02/23 01/02/23 01/02/23 Range/Units 01:23 01:23 01:30 WBC 17.5 H (4.0-10.5) x10^3/uL RBC 4.00 L (4.1-5.4) x10^6/uL Hgb 12.4 (12.0-16.0) g/dL Hct 39.8 (35-47) % MCV 99.5 (78-100) fL MCH 31.0 (26-32) pg MCHC 31.2 L (32-36) g/dL RDW 14.7 H (11.5-14.0) % Plt Count 348 (150-450) x10^3/uL MPV 9.2 (7.5-11.0) fL Gran % 74.1 H (36.0-66.0) % Immature Gran % (Auto) 2.7 H (0.00-0.4) % Nucleat RBC Rel Count 0.0 (0.00-0.1) % Eos # (Auto) 0.18 (0-0.5) x10^3/uL Immature Gran # (Auto) 0.48 H (0.00-0.03) x10^3u/L Absolute Lymphs (auto) 2.84 (1.0-4.6) x10^3/uL Absolute Monos (auto) 0.96 (0.0-1.3) x10^3/uL Absolute Nucleated RBC 0.00 (0.00-0.01) x10^3u/L Lymphocytes % 16.2 L (24.0-44.0) % Monocytes % 5.5 (0.0-12.0) % Eosinophils % 1.0 (0.00-5.0) % Basophils % 0.5 (0.0-0.4) % Absolute Granulocytes 12.98 H (1.4-6.9) x10^3/uL Basophils # 0.09 (0-0.4) x10^3/uL Sodium 136 L (137-145) mmol/L Potassium 3.2 L (3.5-5.1) mmol/L Chloride 104 (98-107) mmol/L Carbon Dioxide 21 L (22-30) mmol/L Anion Gap 13.9 (5-15) MEQ/L BUN 3 L (7-17) mg/dL Creatinine 0.45 L (0.52-1.04) mg/dL Estimated GFR > 60.0 ML/MIN Glucose 259 H (74-106) mg/dL Calcium 8.6 (8.4-10.2) mg/dL Total Bilirubin 0.40 (0.2-1.3) mg/dL AST 16 (14-36) U/L ALT 22 (0-35) U/L Alkaline Phosphatase 88 (38-126) U/L Troponin I 0.057 H* (0.000-0.034) ng/mL NT-Pro-B Natriuret Pep 1390 (<300) pg/mL Serum Total Protein 6.0 L (6.3-8.2) g/dL Albumin 2.8 L (3.5-5.0) g/dL - Radiology Impressions Radiology Exams & Impressions: Radiology Procedures Category Date Time Status CHEST 1 VIEW (PORTABLE) Stat Exams 01/02/23 01:06 Taken Assessment/Plan (1) Allergic reaction Current Visit: Yes Status: Acute Code(s): T78.40XA - ALLERGY, UNSPECIFIED, INITIAL ENCOUNTER (2) Endocarditis Current Visit: Yes Status: Acute Assessment & Plan: ASSESSMENT #Severe allergic reaction #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 Code(s): I38 - ENDOCARDITIS, VALVE UNSPECIFIED Telemedicine Encounter - Telemedicine Encounter Telemedicine Encounter: The entirety of this encounter was performed via Telemedicine"
[2023-01-02] MEDS ORDERED: Sodium Chloride 0.9% W/ 20 mEq KCl/LITER 1,000 ML IV SCH (05:00)
[2023-01-02 05:16] LABS: Absolute Neutrophil Ct (ANC) 15.21 x10^3/uL (1.4-6.9); BASOPHIL % 0.4 % (0.0-0.4); Basophil (Absolute #) 0.06 x10^3/uL (0-0.4); Eosinophil % 0.1 % (0.00-5.0); Eosinophil (Absolute #) 0.01 x10^3/uL (0-0.5); Hemoglobin 10.9 g/dL (12.0-16.0); IMMATURE GRAN # 0.29 x10^3u/L (0.00-0.03); IMMATURE GRAN % 1.8 % (0.00-0.4); Lymphocyte (Absolute #) 0.67 x10^3/uL (1.0-4.6); Lymphocytes % 4.1 % (24.0-44.0); Mean Cell Volume 96.9 fL (78-100); Mean Corpuscular Hemoglobin 31.1 pg (26-32); Mean Corpuscular Hgb Concent. 32.1 g/dL (32-36); Mean Platelet Volume 9.2 fL (7.5-11.0); Monocyte (Absolute #) 0.17 x10^3/uL (0.0-1.3); Neutrophil % 92.6 % (36.0-66.0); Platelet Count 242 x10^3/uL (150-450); Red Blood Count 3.51 x10^6/uL (4.1-5.4); Red Cell Distribution Width 14.8 % (11.5-14.0); White Blood Count 16.4 x10^3/uL (4.0-10.5)
[2023-01-02 06:15] LABS: ALBUMIN 2.6 g/dL (3.5-5.0); ALKALINE PHOSPHATASE 79 U/L (38-126); ANION GAP 11.3 MEQ/L (5-15); BLOOD UREA NITROGEN 4 mg/dL (7-17); CHLORIDE 107 mmol/L (98-107); Calcium 8.4 mg/dL (8.4-10.2); Carbon Dioxide 22 mmol/L (22-30); Creatinine 1 0.35 mg/dL (0.52-1.04); EST GLOMERULAR FILTRATION RATE > 60.0 ML/MIN; Glucose 166 mg/dL (74-106); Potassium 3.8 mmol/L (3.5-5.1); SGOT/AST 18 U/L (14-36); SGPT/ALT 22 U/L (0-35); SODIUM 136 mmol/L (137-145); Total Protein 5.5 g/dL (6.3-8.2)
[2023-01-02] MEDS ORDERED: SYNTHROID 88 MCG PO SCH (07:00)
[2023-01-02] MEDS ORDERED: solu-MEDROL 40 MG, Sterile H2O 10 ml 2 ML IV SCH ×2 (07:30)
--- NOTE | 2023-01-02 07:36 | XRAY ---
Indication: Palpitations. Comparison: December 27, 2022 Portable apical lordotic chest remains inflated and clear. Heart not enlarged. No new/acute abnormalities.
[2023-01-02 07:43] VITALS: RESP 16
[2023-01-02] MEDS ORDERED: LEVOFLOXACIN 750MG/150ML D5W 750 MG/150 ML BAG IV SCH (10:00)
[2023-01-02] MEDS ORDERED: ENOXAPARIN SODIUM SQ SCH (10:00)
[2023-01-02] MEDS ORDERED: solu-MEDROL 40 MG, Sterile H2O 10 ml 1 ML IV SCH ×2 (10:00)
[2023-01-02] MEDS ORDERED: Singulair 10 MG PO SCH (10:00)
[2023-01-02] MEDS ORDERED: PROTONIX 40 MG IV IV SCH (10:00)
--- NOTE | 2023-01-02 14:03 | PCM.DS ---
Discharge Summary Date of Admission: 01/02/23 03:04 Date of Discharge: 4635 01/02/23 Admitting Physician: CUBA MOE MD Primary Care Provider: ANÍBAL WASHBURN KIM Allergies Allergies adhesive Allergy (Verified 01/02/23 00:43) amoxicillin [From Augmentin] Allergy (Verified 01/02/23 00:43) stomach upset clavulanic acid [From Augmentin] Allergy (Verified 01/02/23 00:43) stomach upset corn Allergy (Verified 01/02/23 00:43) Latex, Natural Rubber Allergy (Verified 01/02/23 00:43) metronidazole [From Flagyl] Allergy (Verified 01/02/23 00:43) stomach upset milk Allergy (Verified 01/02/23 00:43) Hospital Summary - Hospital Course Hospital Course: This is a 72-year-old female admitted after allergic reaction to OP IV ant ibiotics. 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 On 01/01 she presented to the ED with hives over her back chest arms and legs. Reaction started 10 hours after her 2nd dose of Rocephin. She does take Calcium gummies and a MVI. This combination of calcium and rocephin may have caused the reaction as it was not immediate with the infusion. Spoke with Dr. Serrato with infectious disease in [place] and he recomended OP Invanz daily. PICC line to be placed today. Will start for 7 days. Will let ID decided how long this is needed. Pt will need to f/u with cardiology. CM setting up appointments for both specialist. Pt denies CP, SOB, abd. pain, N/V/D. - Vitals & Intake/Output Vital Signs: Vital Signs Temperature 97.8 F 01/02/23 12:00 Pulse Rate 106 H 01/02/23 12:00 Respiratory Rate 16 01/02/23 12:00 Blood Pressure 122/70 01/02/23 12:00 O2 Sat by Pulse Oximetry 95 01/02/23 12:00 Intake & Output: Intake & Output 12/31/22 01/01/23 01/02/23 01/03/23 11:59 11:59 11:59 11:59 Intake Total 0 Balance 0 Weight 102.2 kg - Lab Result Diagrams: 01/02/23 05:05 01/02/23 05:05 Lab Results-Last 24 Hrs: Lab Results-Last 24 Hours 01/02/23 01/02/23 01/02/23 Range/Units 01:23 01:23 01:30 WBC 17.5 H (4.0-10.5) x10^3/uL RBC 4.00 L (4.1-5.4) x10^6/uL Hgb 12.4 (12.0-16.0) g/dL Hct 39.8 (35-47) % MCV 99.5 (78-100) fL MCH 31.0 (26-32) pg MCHC 31.2 L (32-36) g/dL RDW 14.7 H (11.5-14.0) % Plt Count 348 (150-450) x10^3/uL MPV 9.2 (7.5-11.0) fL Gran % 74.1 H (36.0-66.0) % Immature Gran % (Auto) 2.7 H (0.00-0.4) % Nucleat RBC Rel Count 0.0 (0.00-0.1) % Eos # (Auto) 0.18 (0-0.5) x10^3/uL Immature Gran # (Auto) 0.48 H (0.00-0.03) x10^3u/L Absolute Lymphs (auto) 2.84 (1.0-4.6) x10^3/uL Absolute Monos (auto) 0.96 (0.0-1.3) x10^3/uL Absolute Nucleated RBC 0.00 (0.00-0.01) x10^3u/L Lymphocytes % 16.2 L (24.0-44.0) % Monocytes % 5.5 (0.0-12.0) % Eosinophils % 1.0 (0.00-5.0) % Basophils % 0.5 (0.0-0.4) % Absolute Granulocytes 12.98 H (1.4-6.9) x10^3/uL Basophils # 0.09 (0-0.4) x10^3/uL Sodium 136 L (137-145) mmol/L Potassium 3.2 L (3.5-5.1) mmol/L Chloride 104 (98-107) mmol/L Carbon Dioxide 21 L (22-30) mmol/L Anion Gap 13.9 (5-15) MEQ/L BUN 3 L (7-17) mg/dL Creatinine 0.45 L (0.52-1.04) mg/dL Estimated GFR > 60.0 ML/MIN Glucose 259 H (74-106) mg/dL Calcium 8.6 (8.4-10.2) mg/dL Total Bilirubin 0.40 (0.2-1.3) mg/dL AST 16 (14-36) U/L ALT 22 (0-35) U/L Alkaline Phosphatase 88 (38-126) U/L Troponin I 0.057 H* (0.000-0.034) ng/mL NT-Pro-B Natriuret Pep 1390 (<300) pg/mL Serum Total Protein 6.0 L (6.3-8.2) g/dL Albumin 2.8 L (3.5-5.0) g/dL 01/02/23 01/02/23 01/02/23 Range/Units 05:05 05:05 05:05 WBC 16.4 H (4.0-10.5) x10^3/uL RBC 3.51 L (4.1-5.4) x10^6/uL Hgb 10.9 L (12.0-16.0) g/dL Hct 34.0 L (35-47) % MCV 96.9 (78-100) fL MCH 31.1 (26-32) pg MCHC 32.1 (32-36) g/dL RDW 14.8 H (11.5-14.0) % Plt Count 242 (150-450) x10^3/uL MPV 9.2 (7.5-11.0) fL Gran % 92.6 H (36.0-66.0) % Immature Gran % (Auto) 1.8 H (0.00-0.4) % Nucleat RBC Rel Count 0.0 (0.00-0.1) % Eos # (Auto) 0.01 (0-0.5) x10^3/uL Immature Gran # (Auto) 0.29 H (0.00-0.03) x10^3u/L Absolute Lymphs (auto) 0.67 L (1.0-4.6) x10^3/uL Absolute Monos (auto) 0.17 (0.0-1.3) x10^3/uL Absolute Nucleated RBC 0.00 (0.00-0.01) x10^3u/L Lymphocytes % 4.1 L (24.0-44.0) % Monocytes % 1.0 (0.0-12.0) % Eosinophils % 0.1 (0.00-5.0) % Basophils % 0.4 (0.0-0.4) % Absolute Granulocytes 15.21 H (1.4-6.9) x10^3/uL Basophils # 0.06 (0-0.4) x10^3/uL Sodium 136 L (137-145) mmol/L Potassium 3.8 (3.5-5.1) mmol/L Chloride 107 (98-107) mmol/L Carbon Dioxide 22 (22-30) mmol/L Anion Gap 11.3 (5-15) MEQ/L BUN 4 L (7-17) mg/dL Creatinine 0.35 L (0.52-1.04) mg/dL Estimated GFR > 60.0 ML/MIN Glucose 166 H (74-106) mg/dL Calcium 8.4 (8.4-10.2) mg/dL Total Bilirubin 0.30 (0.2-1.3) mg/dL AST 18 (14-36) U/L ALT 22 (0-35) U/L Alkaline Phosphatase 79 (38-126) U/L Troponin I 0.065 H* (0.000-0.034) ng/mL NT-Pro-B Natriuret Pep (<300) pg/mL Serum Total Protein 5.5 L (6.3-8.2) g/dL Albumin 2.6 L (3.5-5.0) g/dL 01/02/23 Range/Units 09:32 WBC (4.0-10.5) x10^3/uL RBC (4.1-5.4) x10^6/uL Hgb (12.0-16.0) g/dL Hct (35-47) % MCV (78-100) fL MCH (26-32) pg MCHC (32-36) g/dL RDW (11.5-14.0) % Plt Count (150-450) x10^3/uL MPV (7.5-11.0) fL Gran % (36.0-66.0) % Immature Gran % (Auto) (0.00-0.4) % Nucleat RBC Rel Count (0.00-0.1) % Eos # (Auto) (0-0.5) x10^3/uL Immature Gran # (Auto) (0.00-0.03) x10^3u/L Absolute Lymphs (auto) (1.0-4.6) x10^3/uL Absolute Monos (auto) (0.0-1.3) x10^3/uL Absolute Nucleated RBC (0.00-0.01) x10^3u/L Lymphocytes % (24.0-44.0) % Monocytes % (0.0-12.0) % Eosinophils % (0.00-5.0) % Basophils % (0.0-0.4) % Absolute Granulocytes (1.4-6.9) x10^3/uL Basophils # (0-0.4) x10^3/uL Sodium (137-145) mmol/L Potassium (3.5-5.1) mmol/L Chloride (98-107) mmol/L Carbon Dioxide (22-30) mmol/L Anion Gap (5-15) MEQ/L BUN (7-17) mg/dL Creatinine (0.52-1.04) mg/dL Estimated GFR ML/MIN Glucose (74-106) mg/dL Calcium (8.4-10.2) mg/dL Total Bilirubin (0.2-1.3) mg/dL AST (14-36) U/L ALT (0-35) U/L Alkaline Phosphatase (38-126) U/L Troponin I 0.068 H* (0.000-0.034) ng/mL NT-Pro-B Natriuret Pep (<300) pg/mL Serum Total Protein (6.3-8.2) g/dL Albumin (3.5-5.0) g/dL Micro Results-Entire Visit: Microbiology 01/02/23 Unknown Blood Culture Gram Stain - Final Blood Not Reportable 01/02/23 Unknown Blood Culture Gram Stain - Final Blood Not Reportable - Radiology Exams Ordered Rad Exams-Entire Visit: Radiology Procedures Category Date Time Status CHEST 1 VIEW (PORTABLE) Stat Exams 01/02/23 01:06 Completed - Procedures and Test Procedures and Tests throughout Hospitalization: Therapy Orders & Screens 01/02/23 05:49 Respiratory Therapy Assessment DAILY Comment: Diagnosis: Allergic reaction, SVT, endocarditis Discharge Exam General Appearance: no apparent distress, alert Neurologic Exam: alert, oriented x 3, cooperative, normal mood/affect, nml cerebellar function, sensation nml, No motor deficits Eye Exam: PERRL, EOMI, eyes nml inspection Ears, Nose, Throat Exam: normal ENT inspection, pharynx normal, moist mucous membranes Neck Exam: normal inspection, non-tender, supple, full range of motion Respiratory Exam: normal breath sounds, lungs clear, No respiratory distress Cardiovascular Exam: regular rate/rhythm, normal heart sounds Gastrointestinal/Abdomen Exam: soft, No tenderness, No mass Pelvic Exam: deferred Rectal Exam: deferred Back Exam: normal inspection, normal range of motion, No CVA tenderness, No vertebral tenderness Extremity Exam: normal inspection, normal range of motion Skin Exam: normal color, warm, dry Final Diagnosis/Problem List - Final Discharge Diagnosis/Problem (1) Allergic reaction Current Visit: Yes Status: Acute Code(s): T78.40XA - ALLERGY, UNSPECIFIED, INITIAL ENCOUNTER (2) Endocarditis Current Visit: Yes Status: Acute Code(s): I38 - ENDOCARDITIS, VALVE UNSPECIFIED (3) SVT (supraventricular tachycardia) Current Visit: Yes Status: Acute Code(s): I47.1 - SUPRAVENTRICULAR TACHYCARDIA - Discharge Disposition: Home, Self-Care Condition: Stable Prescriptions: Continue Levothyroxine Sodium 88 Mcg [Synthroid 88 Mcg] 88 mcg PO 0800 Montelukast Sodium 10 mg [Singulair 10 MG] 10 mg PO DAILY Albuterol 8 gm Mdi Hfa [Ventolin Hfa MDI] 2 puffs IH Q4HPRN PRN PRN Reason: Shortness Of Breath Hyoscyamine Sulfate 0.125 mg [Anaspaz 0.125 mg] 0.125 mg SL BIDPRN PRN PRN Reason: Stomach Upset Ramipril [Altace] 10 mg PO BID Lorazepam 0.5 mg [Ativan 0.5 MG] 0.5 mg PO HS Potassium Chloride 40 meq PO DAILY Ondansetron ODT 4 MG [Zofran Odt 4 mg] 4 mg SL Q6H PRN PRN Reason: Nausea PANTOPRAZOLE 40 mg Tablet [Protonix 40MG Tablet] 40 mg PO BID 30 Days #60 tablet Additional Instructions: Follow up with PCP- Dr. Washburn, Cardiology and Infectious disease as scheduled. Follow up for INVANZ IV infusion daily. Follow up with: ANÍBAL WASHBURN MD [Primary Care Provider] - 01/11/23 2:15 pm LOVE SERRATO [NON-STAFF PHY W/O PRIVILEGES] - 01/05/23 1:00 pm
[2023-01-02 16:31] VITALS: BP 140/71; PULSE 132; TEMP 97.6; O2SAT 94
--- NOTE | 2023-01-02 18:03 | XRAY ---
CLINICAL HISTORY:Picc line placement. COMPARISON:None. TECHNIQUES:X-ray chest portable upright AP view. FINDINGS: The right-sided PICC line is seen folded onto itself. Its tip is not seen in the atrioventricular junction. Needs adjustment. Increased cardiac diameter seen, cardiomegaly. Atherosclerotic calcification of the aortic arch. Mild left-sided pleural effusion is seen. Minimal blunting of the right CP angle is also seen could be due to pleural thickening vs reaction. Hilar and mediastinum appears unremarkable. Visualized osseous structures appear unremarkable. Soft tissues appear unremarkable. IMPRESSION: The right-sided PICC line is seen folded onto itself. Its tip is not seen in the atrioventricular junction. Needs adjustment. Cardiomegaly. Mild left-sided pleural effusion is seen. Minimal blunting of right CP angle could be due to pleural thickening vs reaction. Electronically Signed by: Jerson Starkey MD. (01/02/2023 15:15:12 PROJECT CONTROL OFFICER)
--- NOTE | 2023-01-02 18:05 | XRAY ---
CLINICAL HISTORY:PICC line repositioning. COMPARISON:01/02/2023- 09:31. TECHNIQUES:X-ray chest AP portable view. FINDINGS: The right side PICC line is seen at the atrioventricular junction. Increased transverse cardiac diameter, cardiomegaly. Mild left pleural effusion with adjacent subsegmental atelectatic changes. Right CP angle appears unremarkable. No pneumothorax seen. Sushma and mediastinum appears unremarkable. Visualized osseous structures appear unremarkable. Soft tissues appear unremarkable. IMPRESSION: The right side PICC line is seen at the atrioventricular junction. Cardiomegaly. Mild left pleural effusion with adjacent subsegmental atelectatic changes. Electronically Signed by: Jerson Starkey MD. (01/02/2023 15:32:41 SHIPPING AND RECEIVING)
[2023-01-02] MEDS ORDERED: Ativan 0.5 MG PO SCH (22:00)
== END 2023-01-02 17:40 | disposition home or self-care (01) ==
LOC: ED 00:40 → MED SURG 03:04
PROVIDERS: ADMIT Internal Medicine; ATTEND Internal Medicine
DX: T78.40XA Allergy, unspecified, initial encounter (principal); I38 Endocarditis, valve unspecified; I47.1 Supraventricular tachycardia; I10 Essential (primary) hypertension; N17.9 Acute kidney failure, unspecified; R73.9 Hyperglycemia, unspecified; Z79.899 Other long term (current) drug therapy; Z20.828 Contact with and (suspected) exposure to other viral communicable diseases
CPT/HCPCS: 36000; 36415; 36573; 71045; 80053; 83880; 84484; 85025; 93005; 93041; 93268; 94760; 96374; 96375; 99284; 99291; G0378; J0153; J1200; J1650; J1956; J2405; J2920; J2930; Q3014; A9270-GY